=== PATIENT | male | born 1970 | race Caucasian/White ===

== ENCOUNTER 2020-06-24 11:28 | Outpatient (REF) | payer SELFPAY | END 2020-06-24 11:29 | disposition home or self-care (01) | LOC: HO.HAP 11:28 | DX: Z46.1 Encounter for fitting and adjustment of hearing aid (principal) | CPT/HCPCS: V5267 ==

== ENCOUNTER 2020-06-24 11:30 | Outpatient (REF) | payer OTHER, SELFPAY | END 2020-06-24 11:31 | disposition home or self-care (01) | LOC: HO.HAP 11:30 | DX: Z46.1 Encounter for fitting and adjustment of hearing aid (principal) | CPT/HCPCS: V5266 ==

== ENCOUNTER 2020-11-25 18:31 | Emergency (ER) | payer OTHER, SELFPAY ==
--- NOTE | ~2020-11-25 | CT_ITS ---
EXAMINATION: CT ABDOMEN AND PELVIS WITH CONTRAST CLINICAL INFORMATION: Abdominal pain. COMPARISON: Most recent CT abdomen/pelvis dated 04/27/2018. TECHNIQUE: Multidetector volumetric images were obtained from the superior aspect of the liver through the pubic symphysis following administration 85 mL of Omnipaque 350 intravenous contrast. Sagittal and coronal reformatted images were obtained on the technologist's workstation. Oral Contrast: No. This CT examination was performed using dose optimization techniques as appropriate, variously including the following: *Automated exposure control. *Adjustment of mA and/or kV according to patient size (this includes techniques or standardized protocols for targeted exams where dose is matched to indication/reason for exam; i.e. extremities or head). *Use of iterative reconstruction technique. DLP: 536 mGy-cm FINDINGS: LUNG BASES: Mild bibasilar dependent atelectasis. LIVER, GALLBLADDER, AND BILIARY TREE: The liver is normal in size, shape, and attenuation. No focal hepatic lesion or biliary ductal dilatation is present. The gallbladder is unremarkable with no evidence of radiopaque gallstones, gallbladder wall thickening, or obvious pericholecystic inflammatory changes. PANCREAS: Unremarkable. SPLEEN: Unremarkable. ADRENAL GLANDS: Unremarkable. KIDNEYS AND URETERS: The kidneys are normal in size, shape, and attenuation. No hydronephrosis, hydroureter, or calculi seen. Stable left upper pole probable renal cysts, unchanged. No enhancing renal parenchymal lesion. No perinephric stranding. BLADDER: Unremarkable. GASTROINTESTINAL TRACT: No bowel wall thickening or associated inflammatory change. No small or large bowel obstruction. Unremarkable appendix. PERITONEAL CAVITY: No intra-abdominal free air or free fluid. No intra-abdominal mass or organized fluid collection/abscess formation. ABDOMINAL WALL: No significant hernia is appreciated. LYMPH NODES: Normal. VASCULAR: Unremarkable. PELVIC VISCERA: The prostate and seminal vesicles are unremarkable. OSSEOUS STRUCTURES: Unremarkable. CT/CT abdomen pelvis w con IMPRESSION: 1. No acute intra-abdominal or intrapelvic findings to explain the patient's pain. 2. Chronic findings are unchanged.
[2020-11-25 20:02] VITALS: BP 125/73; PULSE 69; RESP 18; TEMP 37; O2SAT 98; BMI 29.9
--- NOTE | 2020-11-25 21:14 | ED_ITS ---
HPI - Abdominal Pain General Chief Complaint: Abdominal Pain Stated Complaint: Diarrhea Time Seen by Provider: 11/25/20 23:54 Source: patient Mode of arrival: ambulatory Limitations: physical limitation (Hard of hearing) History of Present Illness HPI narrative: 50-year-old male presents with 4 days of abdominal pain and diarrhea. States that he did eat some chili, hamburger, and could possibly have some food poisoning. He does report a history of H pylori in the past. He does not report any fevers or chills, but states that the abdominal pain is severe enough for him to present to the emergency department for evaluation he is hard of hearing, able to make his needs known, and reads lips. MD elicited complaint: abdominal pain Pertinent past history: other (Helicobacter pylori) Onset (ago): day(s) (4) Pain Consistency: constant Location: diffuse Severity: moderate Quality: cramping and aching Exacerbating factors: eating and movement Relieving factors: nothing Context: possible food poisoning Associated symptoms: nausea and diarrhea Related Data Home Medications Medication Instructions Recorded Confirmed clonazepam 0.5 mg tablet 0.5 mg PO BID 06/02/20 06/02/20 Previous Rx's Medication Instructions Recorded omeprazole 20 mg capsule,delayed 20 mg PO BID 30 Days #60 cap 07/28/20 release Allergies Allergy/AdvReac Type Severity Reaction Status Date / Time No Known Allergies Allergy Verified 11/25/20 20:02 [No Known Allergies*] Review of Systems Review of Systems Constitutional: No Weight loss, No Fever, No Chills, No Night Sweats, No Fatigue, No Malaise ENT/Mouth: Chronic Hearing loss, No Ear Pain, No Nasal Congestion, No Sinus Pain, No Hoarseness, No sore throat, No Rhinorrhea, No Swallowing Difficulty Eyes: No Eye Pain, No Swelling, No Redness, No Foreign Body, No Discharge, No Vision Changes Cardiovascular: No Chest Pain, No SOB, No Dyspnea on Exertion, No Orthopnea, No Edema, No Palpitations Respiratory: No Cough, No Sputum, No Wheezing, No Smoke Exposure, No Dyspnea Gastrointestinal: Positive Nausea, no Vomiting, positive Diarrhea, positive abdominal Pain, No Hematochezia, No Melena Genitourinary: no irregular bleeding, No Dysuria, No Urinary Frequency, No Hematuria, No Urinary Incontinence, No Urgency, No Flank Pain, No Urinary Flow Changes, No Hesitancy Musculoskeletal: No joint pain, No Myalgias, No Joint Swelling Skin: No Skin Lesions, No rash Neuro: No Weakness, No Numbness, No Paresthesias, No Loss of Consciousness, No Dizziness, No Headache Psych: No Anxiety/Panic, No Depression, No SI/HI/AH/VH, No Social Issues Heme/Lymph: No Bruising, No Bleeding,No Lymphadenopathy Endocrine: No Polyuria, No Polydipsia, No Temperature Intolerance Yes all other systems are reviewed and are negative Physical Exam Vital Signs: Vital Signs: Last Vital Signs Temp 98.6 F 11/25/20 20:02 Pulse 73 11/25/20 21:50 Resp 16 11/25/20 21:50 BP 137/87 11/25/20 21:50 Pulse Ox 98 11/25/20 21:50 Body Mass Index 29.9 Appearance: Alert. Oriented X3. No acute distress. Eyes: Pupils equal, round and reactive to light. Sclera nonicteric. ENT: Pharynx normal. Moist mucous membranes. Neck: Normal inspection. Neck supple. CVS: Normal heart rate and rhythm. Pulses normal. Respiratory: No respiratory distress. Breath sounds normal. Abdomen: Soft and diffusely tender. Normoactive bowel sounds. No rigidity or rebound tenderness noted. Skin: Skin warm and dry. Normal skin color. Normal skin turgor. Extremities: No lower extremity edema. Moves all extremities against resistance. Gait well balanced well coordinated. Neuro: No motor deficit. No sensory deficit. Cranial nerves 2-12 intact. Course Course Course Narrative: 50-year-old male presents with diffuse abdominal pain, no prior history of abdominal surgeries. Does report diarrhea and history of H pylori, abdominal exam positive for Machado's, negative for rebound tenderness. No distention or rigidity noted. Will order CT scan of abdomen and pelvis, and lab values. Labs and diagnostics are negative for acute findings requiring emergent intervention. Could possibly be gastroenteritis. I will refer to Gastroenterology for further evaluation. Patient verbalized understanding of and agrees plan of care discharge home. MDM - Abdominal Pain Differential Diagnosis Differential diagnosis: Likely abdominal pain, acute appendicitis, div erticulitis, gastroenteritis, gastritis and pancreatitis Medical Records Attestation: I reviewed the patient's medical records. Lab Data Attestation: I reviewed the patient's lab results. Result diagrams: 11/25/20 21:36 11/25/20 21:36 Labs: Lab Results 11/25/20 11/25/20 11/25/20 Range/Units 21:24 21:36 21:36 WBC 5.9 (4.8-10.8) X10*3/uL RBC 5.44 (4.60-5.80) X10*6/uL Hgb 16.6 (14.0-18.0) g/dl Hct 47.6 (42-52) % MCV 87.5 (80-98) fL MCH 30.5 (27.0-33.0) pg MCHC 34.9 (31.0-36.0) g/dl RDW 12.0 (11.0-16.0) % Plt Count 236 (160-400) X10*3/uL MPV 9.2 L (9.4-12.4) fL Immature Gran % (Auto) 0.3 (0.0-0.4) % Neut % (Auto) 54.9 (45-73) % Lymph % (Auto) 32.3 (20-40) % [place] % (Auto) 9.3 (2-11) % Eos % (Auto) 2.4 (0-4) % Baso % (Auto) 0.8 (0-2) % Lymph # (Auto) 1.9 (1.2-4.9) X10*3/uL [place] # (Auto) 0.6 (0.1-1.2) X10*3/uL Eos # (Auto) 0.1 (0.0-0.4) X10*3/uL Baso # (Auto) 0.1 (0.0-0.2) X10*3/uL Abs Immat Gran (auto) 0.02 (0.00-0.03) X10*3/uL Absolute Neuts (auto) 3.3 (2.0-8.3) X10*3/uL Absolute Nucleated RBC 0.000 (0.0-0.012) X10*3/uL Nucleated RBC % (auto) 0.0 (0.0-0.2) /100WBC Sodium 140 (135-145) mmol/L Potassium 3.8 (3.3-5.1) mmol/L Chloride 105 (96-108) mmol/L Carbon Dioxide 26 (22-29) mmol/L Anion Gap 13 (12-20) BUN 10 (9-16) mg/dL Creatinine 1.12 (0.5-1.4) mg/dL Estim Creat Clear Calc 75.9 Estimated GFR > 60 Random Glucose 102 (60-115) mg/dL Calcium 9.6 (8.4-10.2) mg/dL Total Bilirubin 0.6 (0.0-1.0) mg/dL AST 20 (5-37) U/L ALT 24 (0-40) U/L Alkaline Phosphatase 86 (39-117) U/L Total Protein 7.4 (6.5-8.0) g/dL Albumin 4.4 (3.5-5.0) g/dL Lipase 17 (8-78) U/L Urine Color YELLOW Urine Appearance CLEAR Urine pH 6.0 (5.0-8.0) Ur Specific [place] 1.010 (1.005-1.025) Urine Protein NEG (NEG-TRACE) MG/DL Urine Glucose (UA) NEG (NEG) MG/DL Urine Ketones NEG (NEG) MG/DL Urine Blood NEG (NEG) Urine Nitrite NEG (NEG) Ur Leukocyte Esterase NEG (NEG) Imaging Data CT scan - abdomen: Attestation: I personally reviewed and interpreted this imaging study as follows: Radiologist's impression: FINDINGS: LUNG BASES: Mild bibasilar dependent atelectasis.? LIVER, GALLBLADDER, AND BILIARY TREE: The liver is normal in size, shape, and attenuation. No focal hepatic lesion or biliary ductal dilatation is present. The gallbladder is unremarkable with no evidence of radiopaque gallstones, gallbladder wall thickening, or obvious pericholecystic inflammatory changes.? PANCREAS: Unremarkable.? SPLEEN: Unremarkable.? ADRENAL GLANDS: Unremarkable.? KIDNEYS AND URETERS: The kidneys are normal in size, shape, and attenuation. No hydronephrosis, hydroureter, or calculi seen. Stable left upper pole probable renal cysts, unchanged. No enhancing renal parenchymal lesion. No perinephric stranding. ? BLADDER: Unremarkable.? GASTROINTESTINAL TRACT: No bowel wall thickening or associated inflammatory change. No small or large bowel obstruction. Unremarkable appendix. PERITONEAL CAVITY: No intra-abdominal free air or free fluid. No intra-abdominal mass or organized fluid collection/abscess formation.? ABDOMINAL WALL: No significant hernia is appreciated.? LYMPH NODES: Normal. VASCULAR: Unremarkable. PELVIC VISCERA: The prostate and seminal vesicles are unremarkable.? OSSEOUS STRUCTURES: Unremarkable.? CT/CT abdomen pelvis w con IMPRESSION: 1. No acute intra-abdominal or intrapelvic findings to explain the patient's pain. ? 2. Chronic findings are unchanged.? Discharge Plan Discharge Clinical Impression: Gastroenteritis Patient Disposition: Home, Self-Care Instructions: Gastroenteritis (ED), Acute Diarrhea (ED) Additional Instructions: You were evaluated for abdominal pain and diarrhea. This could possibly be gastroenteritis. Your CT scan of the abdomen and pelvis was negative for acute findings. Please follow-up with Gastroenterology. Thank you for choosing this emergency department for evaluation. Please fo llow-up with primary care physician as needed. Return to the emergency department for any new, concerning, or worsening symptoms. Prescriptions: No Action omeprazole 20 mg capsule,delayed release(DR/EC) 20 mg PO BID 30 Days Qty: 60 RF: 3 clonazepam 0.5 mg tablet 0.5 mg PO BID RF: 0 Referrals: Maribel Henry ANP-C [Nurse Practitioner] - 2 days (Abdominal pain, diarrhea) Interventions: ED Discharge Assessment Last Done: 11/26/20 00:19 Discharge Date/Time: 11/26/20 00:20 ON LICENSE OF [facility] Past Medical History Attestation statement: The following information was validated with the patient. Source: old records reviewed Medical History (Updated 11/26/20 @ 00:03 by Roseanna Hilario NP) Anxiety GERD without esophagitis Hyperlipidemia Normal colonoscopy Overweight (BMI 25.0-29.9) Surgical History No significant past surgical history Family History Family History Maternal Grandfather Colon cancer Social History Social History Alcohol intake: current Alcohol intake frequency: holidays/special occasions only Advance Directives: No Advance Directives Information Provided: No
[2020-11-25 21:42] LABS: MANUAL DIFF FLAG NO
[2020-11-25 21:43] LABS: Appearance Urine CLEAR; Color Urine YELLOW; Glucose Urine UA NEG (NEG); Leukocyte Esterase Urine NEG (NEG); Nitrite Urine NEG (NEG); Urine Blood NEG (NEG); Urine Ketones NEG (NEG); Urine Protein NEG (NEG-TRACE)
[2020-11-25 21:43] LABS: Basophils Absolute Auto 0.1 X10*3/uL (0.0-0.2); Basophils Percent Auto 0.8 % (0-2); Eosinophils Absolute Auto 0.1 X10*3/uL (0.0-0.4); Eosinophils Percent Auto 2.4 % (0-4); Hematocrit 47.6 % (42-52); Hemoglobin 16.6 g/dl (14.0-18.0); Imm Gran Abs Auto 0.02 X10*3/uL (0.00-0.03); Imm Gran Pct Auto 0.3 % (0.0-0.4); Lymphocytes Absolute Auto 1.9 X10*3/uL (1.2-4.9); Lymphocytes Percent Auto 32.3 % (20-40); Mean Corpuscular HGB Conc 34.9 g/dl (31.0-36.0); Mean Corpuscular Hemoglobin 30.5 pg (27.0-33.0); Mean Corpuscular Volume 87.5 fL (80-98); Mean Platelet Volume 9.2 fL (9.4-12.4); Monocytes Absolute Auto 0.6 X10*3/uL (0.1-1.2); Monocytes Percent Auto 9.3 % (2-11); Neutrophils Absolute Auto 3.3 X10*3/uL (2.0-8.3); Neutrophils Percent Auto 54.9 % (45-73); Platelet Count 236 X10*3/uL (160-400); Red Blood Count 5.44 X10*6/uL (4.60-5.80); White Blood Count 5.9 X10*3/uL (4.8-10.8)
[2020-11-25] MEDS: 0.9 % Sodium Chloride 1,000 ML 999 ML IV (21:47)
[2020-11-25 21:50] VITALS: BP 137/87; PULSE 73; RESP 16; O2SAT 98
[2020-11-25 22:00] LABS: Alanine Aminotransferase 24 U/L (0-40); Albumin Level 4.4 g/dL (3.5-5.0); Alkaline Phosphatase 86 U/L (39-117); Anion Gap 13 (12-20); Aspartate Amino Transferase 20 U/L (5-37); Bilirubin Total 0.6 mg/dL (0.0-1.0); Blood Urea Nitrogen 10 mg/dL (9-16); Calcium 9.6 mg/dL (8.4-10.2); Carbon Dioxide 26 mmol/L (22-29); Chloride 105 mmol/L (96-108); Creatinine Clr Calc Pharmacy 75.9; Estimated Glomerular Filt Rate > 60; Glucose Random 102 mg/dL (60-115); Lipase 17 U/L (8-78); Potassium 3.8 mmol/L (3.3-5.1); Sodium 140 mmol/L (135-145); Total Protein 7.4 g/dL (6.5-8.0)
[2020-11-25] MEDS: iohexoL 350 MG/ML 100 ML INFUS..BTL IV (22:34)
== END 2020-11-26 00:20 | disposition home or self-care (01) ==
PROVIDERS: Nurse Practitioner Family; Emergency Provider Student in an Organized Health Care Education/Training Program; PCP Internal Medicine
DX: K52.9 Noninfective gastroenteritis and colitis, unspecified (principal); R10.9 Unspecified abdominal pain; Z79.899 Other long term (current) drug therapy
CPT/HCPCS: 36415; 74177; 80053; 81003; 83690; 85025; 96360; 99284; Q9967

== ENCOUNTER 2020-12-17 09:43 | Outpatient (REF) | payer OTHER, SELFPAY ==
[2020-12-17 11:06] LABS: MANUAL DIFF FLAG NO
[2020-12-17 11:49] LABS: Basophils Absolute Auto 0.1 X10*3/uL (0.0-0.2); Basophils Percent Auto 0.9 % (0-2); Eosinophils Absolute Auto 0.4 X10*3/uL (0.0-0.4); Eosinophils Percent Auto 4.9 % (0-4); Hematocrit 46.3 % (42-52); Imm Gran Abs Auto 0.02 X10*3/uL (0.00-0.03); Imm Gran Pct Auto 0.3 % (0.0-0.4); Lymphocytes Absolute Auto 1.8 X10*3/uL (1.2-4.9); Lymphocytes Percent Auto 23.7 % (20-40); Mean Corpuscular HGB Conc 34.6 g/dl (31.0-36.0); Mean Corpuscular Hemoglobin 30.3 pg (27.0-33.0); Mean Corpuscular Volume 87.7 fL (80-98); Mean Platelet Volume 9.5 fL (9.4-12.4); Monocytes Absolute Auto 0.6 X10*3/uL (0.1-1.2); Monocytes Percent Auto 7.6 % (2-11); Neutrophils Absolute Auto 4.7 X10*3/uL (2.0-8.3); Neutrophils Percent Auto 62.6 % (45-73); Platelet Count 297 X10*3/uL (160-400); Red Blood Count 5.28 X10*6/uL (4.60-5.80); Red Cell Distribution Width 11.9 % (11.0-16.0); White Blood Count 7.5 X10*3/uL (4.8-10.8)
[2020-12-17 11:51] LABS: Appearance Urine CLEAR; Color Urine YELLOW; Glucose Urine UA NEG (NEG); Leukocyte Esterase Urine NEG (NEG); Nitrite Urine NEG (NEG); Specific Gravity - Urine 1.025 (1.005-1.025); Urine Blood NEG (NEG); Urine Ketones NEG (NEG); Urine Protein NEG (NEG-TRACE)
[2020-12-17 12:10] LABS: Alanine Aminotransferase 14 U/L (0-40); Albumin Level 4.4 g/dL (3.5-5.0); Alkaline Phosphatase 75 U/L (39-117); Anion Gap 11 (12-20); Aspartate Amino Transferase 13 U/L (5-37); Bilirubin Total 0.7 mg/dL (0.0-1.0); Blood Urea Nitrogen 10 mg/dL (9-16); C Reactive Protein 0.23 mg/dL (< or = 0.50); Calcium 9.8 mg/dL (8.4-10.2); Carbon Dioxide 28 mmol/L (22-29); Chloride 107 mmol/L (96-108); Cholesterol 185 mg/dL; Estimated Glomerular Filt Rate > 60; Glucose Fasting 89 mg/dL (60-99); HDL Cholesterol 44 mg/dL; LDL Cholesterol Calculated 124 mg/dl; Potassium 4.3 mmol/L (3.3-5.1); Sodium 142 mmol/L (135-145); Total Protein 7.3 g/dL (6.5-8.0); Triglycerides 89 mg/dL
[2020-12-17 12:24] LABS: TSH reflex Free T4 6.48 uIU/mL (0.32-4.0)
[2020-12-17 13:06] LABS: Free T4 (Free Thyroxine) 0.98 ng/dL (0.71-1.85)
[2020-12-22 12:21] LABS: Transglutaminase Ab IgG <1.0 U/mL; Transglutaminase IgA <1.0 U/mL
== END 2020-12-17 09:44 | disposition home or self-care (01) ==
LOC: HO.LAB 09:43
PROVIDERS: PCP Internal Medicine; Referring Provider Internal Medicine; Visit Provider Nurse Practitioner
DX: R19.7 Diarrhea, unspecified (principal); K21.9 Gastro-esophageal reflux disease without esophagitis; R10.13 Epigastric pain; E78.5 Hyperlipidemia, unspecified; E66.3 Overweight
CPT/HCPCS: 36415; 80053; 80061; 81003; 83516; 84439; 84443; 85025; 86140; 99212

== ENCOUNTER 2020-12-19 09:23 | Outpatient (REF) | payer OTHER, SELFPAY | END 2020-12-19 09:24 | disposition home or self-care (01) | LOC: HO.LNP 09:23 | PROVIDERS: Visit Provider Nurse Practitioner | DX: R19.7 Diarrhea, unspecified (principal); R10.13 Epigastric pain | CPT/HCPCS: 87045; 87046; 87338 ==

== ENCOUNTER → 2021-01-01 11:25 | Outpatient (BNVA) | payer OTHER, SELFPAY | PROVIDERS: PCP Internal Medicine; Referring Provider Internal Medicine; Visit Provider Nurse Practitioner | DX: R19.7 Diarrhea, unspecified (principal); K21.9 Gastro-esophageal reflux disease without esophagitis; R10.13 Epigastric pain; A04.8 Other specified bacterial intestinal infections; E78.5 Hyperlipidemia, unspecified; E66.9 Obesity, unspecified; Z68.27 Body mass index [BMI] 27.0-27.9, adult | CPT/HCPCS: 99212 ==

== ENCOUNTER 2021-03-01 10:30 | Day surgery (SDC) | payer OTHER, SELFPAY ==
[2021-02-23 14:37] VITALS: BMI 27.9
--- NOTE | 2021-02-26 09:16 | P.CONAN_ITS ---
Documented by User: Starr Salas NP 02/26/21 09:17 HPI - Anesthesia Eval Consult details Narrative: 51yo M for Colonoscopy PMFSH Active Problems Active Problems: All Active Problems (Updated 01/01/21 @ 15:47 by HAYLEY Shafer) Hearing impaired (Acute) Depression (Acute) Gastroenteritis (Acute) Diarrhea (Acute) Dyspepsia (Acute) H. pylori infection (Acute) Overweight (BMI 25.0-29.9) (Acute) Anxiety (Acute) GERD without esophagitis (Acute) Hyperlipidemia (Acute) Past Medical History Medical History (Updated 01/01/21 @ 15:47 by HAYLEY Shafer) Anxiety GERD without esophagitis H. pylori infection Hyperlipidemia Normal colonoscopy Overweight (BMI 25.0-29.9) Family History Family History Maternal Grandfather Colon cancer Surgical History Surgical History (Updated 03/01/21 @ 11:36 by Ann Marie Blankenship RN) H/O colonoscopy Hx of wisdom tooth extraction Social History Social History Housing: House Alcohol intake: current Alcohol intake frequency: holidays/special occasions only Patient Tobacco Use Status: Never used Tobacco Second Hand Smoke Exposure: Yes Advance Directives Information Provided: Yes (informational brochure mailed) Advance Directives on File: No service: No Current occupational status: unemployed Meds Allergies Allergy/AdvReac Type Severity Reaction Status Date / Time No Known Allergies Allergy Verified 03/01/21 11:36 [No Known Allergies*] Exam Exam Date and Time: February 26, 2021 0916 Height,Weight and Vital Signs: Height 5 ft 5 in Weight 76.204 kg Pertinent Lab Results Pertinent Lab Results: Laboratory Tests 12/17/20 12/17/20 11:00 11:00 WBC 7.5 Hgb 16.0 Hct 46.3 Plt Count 297 D Sodium 142 Potassium 4.3 Chloride 107 Carbon Dioxide 28 BUN 10 Creatinine 1.14 Assessment and Plan Assessment Anesthesia Assessment: Chart Reviewed Documented by User: Lexy Mooney MD 03/01/21 12:05 [facility] Past Medical History Medical History (Updated 01/01/21 @ 15:47 by HAYLEY Shafer) Anxiety GERD without esophagitis H. pylori infection Hyperlipidemia Normal colonoscopy Overweight (BMI 25.0-29.9) Family History Family History Maternal Grandfather Colon cancer Family history of problems with anesthesia: No Surgical History Surgical History (Updated 03/01/21 @ 11:36 by Ann Marie Blankenship RN) H/O colonoscopy Hx of wisdom tooth extraction History of Problems with Anesthesia: No Social History Social History Housing: House Alcohol intake: current Alcohol intake frequency: holidays/special occasions only Patient Tobacco Use Status: Never used Tobacco Second Hand Smoke Exposure: Yes Advance Directives Information Provided: Yes (informational brochure mailed) Advance Directives on File: No service: No Current occupational status: unemployed Meds Allergies Allergy/AdvReac Type Severity Reaction Status Date / Time No Known Allergies Allergy Verified 03/01/21 11:36 [No Known Allergies*] Exam Airway Mallampati Class: II (Top front 2 implants anither off tomright top) TM Dist: >3cm Neck ROM: Full Heart: rrr Lungs: cta Assessment and Plan Assessment Anesthesia Assessment: Anesthesia Plan Discussed and Chart Reviewed Final Anesthetic Review Family History of Problems with Anesthesia: No History of Problems with Anesthesia: No NPO: Yes ASA Class: II Final Preanesthetic Review: No Changes in Pt Med Stat, Meds/Allgs Chart Reviewed and Consent Obtained/Reviewed Patient Risk: Intermediate Procedure Risk: Intermediate Anesthetic Plan Anesthetic Plan: MAC: Disposition: Standard PACU
--- NOTE | 2021-03-01 10:47 | MHC.SHP ---
Pre-Procedural Eval Section A Date of Service: 03/01/21 Section B Chief Complaint: diarrhea,unspecified Details of Present Illness: grand dad with colon cancer, cousin with polyps Relevant Family History (Specify if Yes): Yes Relevant Social History: None Present Medications: see Short Stay Collaborative assessment Medical History: Significant History (Anxiety GERD without esophagitis H. pylori infection Hyperlipidemia Normal colonoscopy Overweight (BMI 25.0-29.9)) History of Previous Operations: Relevant previous surgery/procedure and date(s) (colonoscopy) Allergies: Allergies Allergy/AdvReac Type Severity Reaction Status Date / Time No Known Allergies Allergy Verified 01/01/21 11:34 [No Known Allergies*] Review of Systems Sugical H&P ROS: Negative: Constitution, Cardiovascular, Respiratory, Neurological, Psychiatric, Hem-Onc, Allergic/Immunologic, Gastrointestinal, Genitourinary, Musculoskeletal, Integumentary, Endocrine and Eyes/Ears/Nose/Throat Exam Surgical H&P Exam: Normal: HEENT, Normal: Heart, Normal: Lungs, Normal: Extremities, Normal: Abdomen, Normal: Skin and Normal: Neurological Plan Diagnosis/Plan: Unchanged I have reviewed the history and physical and performed a pertinent physical examination on my patient. No changes have occurred unless specified.
[2021-03-01 11:51] VITALS: BP 110/75; PULSE 77; RESP 16; TEMP 37.1; O2SAT 97
[2021-03-01] MEDS: Lactated Ringers 1,000 ML 100 ML IVCONT (12:00)
--- NOTE | 2021-03-01 12:01 | P.BOP_ITS ---
Brief Operative Note Date of Service: 03/01/21 Pre-op diagnosis: altered bowel habit Post-op diagnosis: same Procedure: see op note Surgeon: Carmenza Hobbs MD Anesthesia: MAC Was an Biomedical Field Service Engineer used for this Procedure?: No Estimated blood loss (mL): 0 Condition: stable Disposition: PACU
--- NOTE | 2021-03-01 12:01 | P.OP_ITS ---
Operative Note Operative Note Date of Service: 03/01/21 Narrative: Operative Information Procedure Description: Colonoscopy COLONOSCOPY Instrument: Olympus variable stiffness pediatric scope 190L Colonoscopy Monitoring: Vital signs and clinical assessment, continuous EKG monitoring, Pulse oximetry, Carbon Dioxide monitoring and blood pressure monitoring were done throughout the procedure. Colon withdrawal time was 11 minutes. Procedure: The patient was placed in the left lateral decubitis position and pre-procedure medications were administered. After a digital rectal examination of the ano-rectum, the video colonoscope was inserted into the rectum and advanced through the colon to the cecum/TI. The colonoscope was slowly withdrawn in a retrograde panoramic fashion and the colon mucosa was carefully examined including a retroflexed view of the rectum. Findings and interventions are described below. Procedure Difficulty: easy Findings: Terminal Ileum-normal, bx taken patchy nodularity to the colonic mucosa, random bx were taken Cecum:normal Ascending Colon: normal Transverse Colon -normal Descending Colon:normal Sigmoid Colon: normal Rectum: Retroflexion with small internal hemorrhoids, grade I Anorectum - normal Colon preparation: Murchison Bowel Preparation Scale Right colon; 2 Transverse colon: 2 Left colon; 2 (0 = Unprepared colon segment with mucosa not seen due to solid stool that cannot be cleared. 1 = Portion of mucosa of the colon segment seen, but other areas of the colon segment not well seen due to staining, residual stool and/or opaque liquid. 2 = Minor amount of residual staining, small fragments of stool and/or opaque liquid, but mucosa of colon segment seen well. 3 = Entire mucosa of colon segment seen well with no residual staining, small fragments of stool or opaque liquid) Impression and Post Procedure Diagnosis: internal hemorrhoids Plan: High fiber diet leaflet Avoid straining at stool, epsom salts and sitz bath, anusol supps or cream Repeat Colonoscopy in 10 years or earlier if clinically indicated await path results Above findings were reviewed with the patient and relevant handouts were provided if indicated.
[2021-03-01 12:43] VITALS: BP 80/42; PULSE 70; RESP 16; TEMP 36.4; O2SAT 97
[2021-03-01 13:10] VITALS: BP 83/47; PULSE 66; RESP 18; O2SAT 96
== END 2021-03-01 14:36 | disposition home or self-care (01) ==
PROVIDERS: PCP Internal Medicine; Visit Provider Internal Medicine Gastroenterology
PROC: 0DJD8ZZ Inspection of Lower Intestinal Tract, Via Natural or Artificial Opening Endoscopic (ICD-10-PCS; CPT 45378; principal; 2021-03-01 11:50)
DX: R19.7 Diarrhea, unspecified (principal); K63.89 Other specified diseases of intestine; K64.0 First degree hemorrhoids; K21.9 Gastro-esophageal reflux disease without esophagitis; F41.1 Generalized anxiety disorder; E78.5 Hyperlipidemia, unspecified; R10.13 Epigastric pain; A04.8 Other specified bacterial intestinal infections; Z79.899 Other long term (current) drug therapy; E66.3 Overweight; Z68.27 Body mass index [BMI] 27.0-27.9, adult
CPT/HCPCS: 45380; 88305

== ENCOUNTER → 2021-04-01 10:50 | Outpatient (BNVA) | payer OTHER, SELFPAY | PROVIDERS: PCP Internal Medicine; Referring Provider Internal Medicine; Visit Provider Nurse Practitioner | DX: K21.9 Gastro-esophageal reflux disease without esophagitis (principal); K58.2 Mixed irritable bowel syndrome; R10.13 Epigastric pain; Z83.71 Family history of colonic polyps | CPT/HCPCS: 99212 ==

== ENCOUNTER 2021-04-12 13:41 | Outpatient (REF) | payer OTHER, SELFPAY | END 2021-04-12 13:42 | disposition home or self-care (01) | LOC: HO.HAP 13:41 | PROVIDERS: Visit Provider Internal Medicine | DX: Z46.1 Encounter for fitting and adjustment of hearing aid (principal); H90.3 Sensorineural hearing loss, bilateral | CPT/HCPCS: V5266 ==

== ENCOUNTER → 2021-04-27 07:47 | Outpatient (REF) | payer OTHER, SELFPAY ==
--- NOTE | ~2021-04-27 | NM_ITS ---
EXAMINATION: NM BILIARY TRACT WITH ORAL FATTY MEAL CLINICAL INFORMATION: Epigastric pain. COMPARISON: No previous biliary scan is available for comparison. The diagnostic CT scan of the abdomen and pelvis, dated 11/25/2020, is available for comparison. TECHNIQUE: Serial gamma scintillation camera images were obtained over the abdomen for a total observation period of 124 minutes following the intravenous administration of 5 mCi Tc-99m Mebrofenin. FINDINGS: There is good concentration of activity in the liver by 5 minutes post injection. Biliary activity is visualized by 10 minutes. The gallbladder is well visualized by 35 minutes. Small bowel is well visualized by 15 minutes. At 60 minutes post Mebrofenin injection, 8 ounces of Ensure-plus Brand was administered orally and an additional 60 minutes of images were obtained. There is good emptying of the gallbladder following ingestion of the fatty meal. At the end of the study there is good clearance of activity from the liver and visualization of diffuse small bowel activity. The calculated gallbladder ejection fraction is 78% (normal gallbladder ejection fraction using Ensure supplement orally is greater than 33%). NM/NM hepatobiliary w pharm IMPRESSION: Visualization of the gallbladder is evidence of a patent cystic duct and strong evidence against the diagnosis of acute cholecystitis. The common bile duct is patent. Gallbladder emptying and ejection fraction are normal. Liver function appears normal.
== END ==
LOC: HO.NUCMED 07:47
PROVIDERS: PCP Internal Medicine; Visit Provider Nurse Practitioner
DX: R10.13 Epigastric pain (principal)
CPT/HCPCS: 78227; A9537

== ENCOUNTER → 2021-05-03 11:29 | Outpatient (BNVA) | payer OTHER, SELFPAY | PROVIDERS: PCP Internal Medicine; Referring Provider Internal Medicine; Visit Provider Nurse Practitioner | DX: K58.2 Mixed irritable bowel syndrome (principal); K21.9 Gastro-esophageal reflux disease without esophagitis; R10.13 Epigastric pain | CPT/HCPCS: 99212 ==

== ENCOUNTER 2021-06-08 10:26 | Outpatient (REF) | payer OTHER, SELFPAY ==
--- NOTE | 2021-06-08 13:29 | MHC.AU.AHA ---
Adult Audiological Evaluation Date of Visit: 06/08/21 Cooperative Education Coordinator Used: Not Applicable Reason for Appointment: Audiologic re-evaluation prior to obtaining new hearing aids as required by insurance. Cruzito has a history of progressive bilateral sensorineural hearing loss. Previous Hearing Test Results: 2015 [facility] Profound sensorineural hearing loss 250-8000 Hz bilaterally. Medical History: Medical History: Hyperlipidemia Medication List: Not available for review Hearing Instrument History- Right Ear: Java Application Engineer: Phonak Model: Hemalatha Q 50-UP Serial Number: [id number] Battery Size: 675 Repair Warranty: 2017 Dispensed By: [facility] Date of Fittin01/15/2015 Hearing Instrument History- Left Ear: Java Application Engineer: Phonak Model: Hemalatha Q 50-UP Serial Number: [id number] Battery Size: 675 Warranty: 2017 Dispensed By: [facility] Date of Fittin01/15/2015 Otoscopy: Right Ear: Unremarkable Left Ear: Unremarkable Tympanometry: Not performed at today's visit as all previous test results have indicated normal middle ear function bilaterally. Hearing Evaluation: Transducer(s) Used: Insert Earphones Bone Conduction Method: Conventional Audiometry Stimuli Used: Pure Tones Right Ear: Description of Hearing: Profound sensorineural hearing loss 250-8000 Hz Left Ear: Description of Hearing: Profound sensorineural hearing loss 250-8000 Hz Speech Awareness Threshold (SAT): Method Used: Live Monitored Voice Right Ear: 90 dB HL Left Ear: 95 dB HL Word Discrimination: Right Ear: Could Not Test Left Ear: Could Not Test Comparison: Compared to most recent evaluation: Thresholds for 250-1000 Hz have decreased for both ears, left ear greater than right. Recommendations: Trial with new amplification is recommended. Medical clearance from a physician is required before fitting. Hearing Aid Fitting will be scheduled when all materials arrive. Audiological re-evaluation in one year. Diagnosis: Primary Diagnosis: H90.3 Bilateral Sensorineural Hearing Loss Services Performed: [employer] (CPT 08474) Signature: Provider: Jessica Zuniga, [facility]
--- NOTE | 2021-06-08 13:34 | MHC.AU.MED ---
Medical Clearance for Hearing Instrumentation Date: 06/08/21 Patient Name: Cruzito Gonzalez JR Date of : 1970 Primary Care Provider: Referring Provider: Fernando Garza MD We have seen your patient on 06/08/21 and have determined that they are a candidate for amplification (See accompanying report). Specifically, they would benefit from: Hearing aid use in both ears There is a statute that addresses Medical Evaluation Requirements prior to fitting a patient with a hearing aid. According to [place] statute 265 CMR:6.03(1), (a) General. Except as provided in 265 CMR 6.03(1)(b), a [facility] nurse shall not sell a hearing aid unless the prospective user has presented to the [facility] nurse a written statement signed by a licensed physician that states that the patient's hearing loss has been medically evaluated and the patient may be considered a candidate for a hearing aid. The medical evaluation must have taken place within the preceding six months. Please note: Due to the [place] Statute referenced above, we cannot accept a signature other than that of a licensed physician. DOCK MANAGER and PA signatures cannot be accepted. I am in agreement with the above recommendation. There is no medical contraindication for hearing instrumentation. Physician Signature Date Physician Name (Printed)
--- NOTE | 2021-06-08 13:46 | MHC.AU.HAS ---
Hearing Aid Evaluation Date of Visit: 06/08/21 Historical Information: Description of Hearing: Profound sensorineural hearing loss bilaterally with no speech discrimination ability without visual cues. Current personal amplification information, if applicable: 2014 binaural Phonak Hemalatha Q 50-UP BTE Hearing Aid Prescription: Based on the individual?s shared listening needs, communication environments, dexterity, desire for connectivity, and personal preferences, the following prescription for amplification has been made: Right ear: Golf Instructor: Phonak Model: Hemalatha P 70-UP Battery Size: 675 Color: Beige Tubing: Tube Lock Type of Mold: Microsonic Canal Shell Left ear:Left ear prescription to be same as Right Hearing Aid above: Golf Instructor: Phonak Model: Hemalatha P 70-UP Battery Size: 675 Color: Beige Tubing: Tube Lock Type of Mold: Microsonic Canal Shell Plan of Care: Patient wishes to purchase hearing aids as prescribed Action Taken/Action Needed: Earmold Impressions Taken, Medical Clearance to be requested from PCP/ENT, Hearing Instrument Fitting to be scheduled when materials arrive Primary Diagnosis: H90.3 Bilateral Sensorineural Hearing Loss Signature: Provider: Jessica Zuniga, CCC-A
== END 2021-06-08 10:27 | disposition home or self-care (01) ==
LOC: HO.SH 10:26
PROVIDERS: Visit Provider Internal Medicine
DX: Z01.118 Encounter for examination of ears and hearing with other abnormal findings (principal); Z46.1 Encounter for fitting and adjustment of hearing aid; H90.3 Sensorineural hearing loss, bilateral
CPT/HCPCS: 92553; 92591; V5275

== ENCOUNTER 2021-06-20 15:19 | Emergency (ER) | payer OTHER, SELFPAY ==
[2021-06-20 15:50] VITALS: BP 117/72; PULSE 75; RESP 18; O2SAT 99; BMI 24.3
--- NOTE | 2021-06-20 16:53 | ED.SKABFB ---
HPI - Skin/Abscess/Foreign Bdy General Chief complaint: Skin/Abscess/Foreign Body Stated complaint: rash all over body Time Seen by Provider: 06/20/21 16:28 Source: patient Mode of arrival: ambulatory Limitations: no limitations History of Present Illness HPI narrative: 51-year-old male here with reports of itching rash for the last 4 days over his arms and legs and genital region. Patient tells me this occurred after he was camping in the [facility] and was in contact with either poison day or poison oak. Patient denies any burning or pain to the rash or fevers or chills. Patient also reports he removed a tick from his lower abdomen yesterday. He believes he may have gotten the tick on him from camping 4 days ago. No fevers, chills, headache, neck pain/stiffness. Related Data Previous Rx's Medication Instructions Recorded sennosides 8.6 mg capsule (senna) 17.2 mg PO BEDTIME 30 Days #60 cap 04/01/21 dicyclomine 20 mg tablet 20 mg PO QID #360 tab 04/20/21 famotidine 40 mg tablet (Pepcid) 40 mg PO BEDTIME #30 tab 05/07/21 omeprazole 20 mg capsule,delayed 20 mg PO DAILY 30 Days #30 cap 05/07/21 release diphenhydramine HCl 25 mg capsule 25 mg PO Q6H PRN #20 cap 06/20/21 (Benadryl) hydrocortisone 2.5 % topical cream 1 appl TOPICAL QID PRN #30 g 06/20/21 prednisone 20 mg tablet 60 mg PO DAILY #15 tab 06/20/21 Allergies Allergy/AdvReac Type Severity Reaction Status Date / Time No Known Allergies Allergy Verified 06/20/21 15:55 [No Known Allergies*] Review of Systems Review of Systems: Yes all other systems are reviewed and are negative Constitutional: Constitutional: Reports no additional constitutional complaints, Denies body ache(s), Denies chills, Denies fever(s), Denies headache(s) and Denies weakness Eyes: Eyes: Reports no additional eye complaints and Denies change in vision ENT: Reports system reviewed and no additional complaints, except as documented, Denies dizziness, Denies headache(s), Denies nasal congestion, Denies nasal discharge and Denies neck pain Cardiovascular: Cardiovascular: Reports no additional cardiovascular complaints, Denies chest pain, Denies leg edema and Denies dyspnea Respiratory: Respiratory: Reports no additional respiratory complaints, Denies cough and Denies dyspnea Gastrointestinal: Gastrointestinal: Reports no additional gastrointestinal complaints, Denies abdominal pain, Denies diarrhea, Denies nausea and Denies vomiting Genitourinary: Genitourinary: Denies urinary incontinence Musculoskeletal: Musculoskeletal: Reports no additional musculoskeletal complaints, Denies back pain, Denies arthralgias, Denies joint swelling, Denies neck pain, Denies numbness and Denies tingling Integumentary/Breasts: Skin/Breast: Reports system reviewed and no additional complaints, except as docu and Reports rash Neurologic: Reports system reviewed and no additional complaints, except as documented, Denies Abnormal speech present, Denies dizziness, Denies headache(s), Denies numbness, Denies tingling and Denies weakness PMFSH Past Medical History Attestation statement: The following information was validated with the patient. Source: old records reviewed and nursing notes reviewed Medical History Anxiety GERD without esophagitis H. pylori infection Hyperlipidemia Normal colonoscopy Overweight (BMI 25.0-29.9) Surgical History H/O colonoscopy Hx of wisdom tooth extraction Family History Family History Maternal Grandfather Colon cancer Social History Social History Housing: House Alcohol intake: current Alcohol intake frequency: holidays/special occasions only Patient Tobacco Use Status: Never used Tobacco Second Hand Smoke Exposure: Yes Advance Directives: No Advance Directives Information Provided: Yes service: No Current occupational status: unemployed Physical Exam Vital Signs: Vital Signs: Last Vital Signs Pulse 75 06/20/21 15:50 Resp 18 06/20/21 15:50 BP 117/72 06/20/21 15:50 Pulse Ox 99 06/20/21 15:50 BMI result Body Mass Index 24.3 Const: General: cooperative, healthy appearing, comfortable and no acute distress Orientation/consciousness: patient oriented x3 Limitations: no limitations HEENT: Head: Yes normal to inspection Ears: hearing grossly normal bilaterally General nose exam: Normal external nose present Face and sinus: Yes normal facial exam Mouth: Normal oral and palatal mucosa present Throat: Yes posterior oropharynx normal Eyes: General: appearance normal, both eyes and all related structures Pupils: Equal, round and reactive pupils present Neck: Neck: Yes normal visual inspection Chest: Chest palpation & inspection: normal inspection of the chest Resp: Effort & Inspection: normal respiratory effort Auscultation: clear to auscultation bilaterally Cardio: Rate: regular rate Rhythm: regular rhythm Peripheral pulses: Peripheral pulses 2+ throughout GI: Inspection: Yes normal to inspection Palpation (GI): Soft to palpation and nontender Auscultation: normal bowel sounds Back/Spine/Pelvis: Thoracic/Lumbar Spine: thoracic and lumbar spine normal to inspection Skin: Other: Rash to arms/legs/genital region which is linear in nature with vesicles To the lower right abdomen there is small area of erythema with a central bite doyle. NO bullseye appearance. Neuro: General: patient oriented x3, no focal motor deficits and normal sensation to monofilament Cranial nerves: Yes Equal, round and reactive pupils present Cognition (Neuro): normal cognition Speech: No Abnormal speech present Gait exam (Neuro): Normal gait present Motor exam (neuro): 5/5 motor strength present throughout Extrem: General: Yes normal to inspection Course Course Course Narrative: 51 yo male here with itching rash c/w with poison day/oak. Will treat with prednisone course, topical corticosteroids and Benadryl p.r.n. patient also has a tick bite to the right lower abdomen that does not appear consistent with erythema migrans. He believes to take may have been in place for several days and he tells me it was engorged when he removed. He was given 1 time dose of doxycycline 200 mg. We reviewed signs and symptoms of tick-borne illnesses and when to return to the emergency department. Comfortable discharge home. MDM - Skin/Abscess/Foreign Bdy Medical Records Attestation: I reviewed the patient's medical records. Lab Data Attestation: I reviewed the patient's lab results. Discharge Plan Discharge Clinical Impression: Poison ady, Tick bite Patient Disposition: Home, Self-Care Instructions: Poison Day (ED), Tick Bite (ED) Additional Instructions: You received 1 time dose of doxycycline for your tick bite. Please monitor the site. Return for bulls eye appearance, fever, headache, chills, neck pain or stiffness. Prescriptions: New prednisone 20 mg tablet 60 mg PO DAILY Qty: 15 0RF hydrocortisone 2.5 % cream 1 appl topical QID PRN (Reason: rash) Qty: 30 0RF diphenhydramine HCl [Benadryl] 25 mg capsule 25 mg PO Q6H PRN (Reason: itching) Qty: 20 0RF No Action dicyclomine 20 mg tablet 20 mg PO QID Qty: 360 1RF famotidine [Pepcid] 40 mg tablet 40 mg PO BEDTIME Qty: 30 6RF omeprazole 20 mg capsule,delayed release(DR/EC) 20 mg PO DAILY 30 Days Qty: 30 6RF senna 8.6 mg capsule 17.2 mg PO BEDTIME 30 Days Qty: 60 3RF Referrals: Fernando Garza MD [Primary Care Provider] - 1 week (as needed) Interventions: ED Discharge Assessment Last Done: 06/20/21 16:51
== END 2021-06-20 16:54 | disposition home or self-care (01) ==
PROVIDERS: Emergency Provider Emergency Medicine; PCP Internal Medicine
DX: L23.7 Allergic contact dermatitis due to plants, except food (principal); S30.861A Insect bite (nonvenomous) of abdominal wall, initial encounter; W57.XXXA Bitten or stung by nonvenomous insect and other nonvenomous arthropods, initial encounter; Y93.9 Activity, unspecified; Y92.9 Unspecified place or not applicable; Y99.9 Unspecified external cause status
CPT/HCPCS: 99283

== ENCOUNTER 2021-07-13 14:13 | Emergency (ER) | payer OTHER, SELFPAY ==
--- NOTE | ~2021-07-13 | XR_ITS ---
EXAMINATION: XR KNEE, RIGHT XR TIBIA FIBULA, RIGHT CLINICAL INFORMATION: Status post fall with right knee/leg pain and swelling COMPARISON: None TECHNIQUE: 4 views of the right knee 2 views the right tibia-fibula FINDINGS: No acute visible fracture or dislocation. Mild multicompartment degenerative changes. Mild narrowing of the medial femorotibial compartment. Periarticular osteophytes along the tibial plateau. Joint spaces and alignment are otherwise maintained. No large knee joint effusion. Soft tissues are unremarkable. XR/XR knee RT 4V IMPRESSION: 1. No acute visible fracture or dislocation. 2. Mild multicompartment degenerative changes.
--- NOTE | ~2021-07-13 | US_ITS ---
EXAMINATION: US VENOUS ULTRASOUND WITH DOPPLER LOWER EXTREMITY, RIGHT CLINICAL INFORMATION: Right leg swelling COMPARISON: None TECHNIQUE: Ultrasound of the deep veins is performed from the hip to the calf with compression sonography and color and pulse Doppler assessment. Spectral analysis with color-flow imaging is performed. FINDINGS: There is normal venous compression and respiratory variation and augmented flow. The visualized common femoral vein, superficial femoral vein, profunda femoral vein, popliteal vein, and the trifurcation region shows no evidence of deep venous thrombosis. There is no significant popliteal fossa cyst. If the patient's symptoms persist, followup ultrasound in 5 days 7 days might be of value to exclude proximal propagation from a non-visualized calf vein. US/US venous duplex LE RT IMPRESSION: No DVT demonstrated in the right lower extremity.
--- NOTE | ~2021-07-13 | XR_ITS ---
EXAMINATION: XR KNEE, RIGHT XR TIBIA FIBULA, RIGHT CLINICAL INFORMATION: Status post fall with right knee/leg pain and swelling COMPARISON: None TECHNIQUE: 4 views of the right knee 2 views the right tibia-fibula FINDINGS: No acute visible fracture or dislocation. Mild multicompartment degenerative changes. Mild narrowing of the medial femorotibial compartment. Periarticular osteophytes along the tibial plateau. Joint spaces and alignment are otherwise maintained. No large knee joint effusion. Soft tissues are unremarkable. XR/XR tibia fibula RT 2V IMPRESSION: 1. No acute visible fracture or dislocation. 2. Mild multicompartment degenerative changes.
[2021-07-13 14:16] VITALS: BP 143/88; PULSE 90; RESP 18; TEMP 36.4; O2SAT 99; BMI 25.5
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
== END 2021-07-13 16:18 | disposition home or self-care (01) ==
PROVIDERS: Emergency Provider Emergency Medicine; PCP Internal Medicine
DX: S83.91XA Sprain of unspecified site of right knee, initial encounter (principal); S86.911A Strain of unspecified muscle(s) and tendon(s) at lower leg level, right leg, initial encounter; M79.89 Other specified soft tissue disorders; M79.604 Pain in right leg; V86.56XA Driver of dirt bike or motor/cross bike injured in nontraffic accident, initial encounter; Y93.89 Activity, other specified; Y92.410 Unspecified street and highway as the place of occurrence of the external cause; Y99.9 Unspecified external cause status
CPT/HCPCS: 73564; 73590; 93971; 99283; 99284

== ENCOUNTER → 2021-07-26 11:46 | Outpatient (BNVA) | payer OTHER, SELFPAY | PROVIDERS: PCP Internal Medicine; Visit Provider Nurse Practitioner | DX: K58.2 Mixed irritable bowel syndrome (principal); K21.9 Gastro-esophageal reflux disease without esophagitis; H91.90 Unspecified hearing loss, unspecified ear | CPT/HCPCS: 99212 ==

== ENCOUNTER 2021-08-25 10:24 | Outpatient (REF) | payer OTHER, SELFPAY | END 2021-08-25 10:25 | disposition home or self-care (01) | LOC: HO.HAP 10:24 | PROVIDERS: Visit Provider Internal Medicine | DX: Z46.1 Encounter for fitting and adjustment of hearing aid (principal); H90.3 Sensorineural hearing loss, bilateral | CPT/HCPCS: V5011; V5020; V5160; V5261; V5264; V5266 ==

== ENCOUNTER 2021-09-16 13:25 | Outpatient (REF) | payer OTHER, SELFPAY | END 2021-09-16 13:26 | disposition home or self-care (01) | LOC: HO.HAP 13:25 | PROVIDERS: Visit Provider Internal Medicine | DX: Z13.89 Encounter for screening for other disorder (principal) ==

== ENCOUNTER 2021-10-14 13:21 | Outpatient (REF) | payer OTHER, SELFPAY ==
--- NOTE | 2021-10-14 15:45 | MHC.AU.HFA ---
Hearing Instrument Fitting- Adult- Binaural Date of Visit: 10/14/21 Hearing Instruments Dispensed: Right Ear: Weapons System Instrument Mechanic: HAWA Resound Model: Mitul Q7 978 DWT, LumenpulseE Serial Number: [id number] Repair Warranty: 10/22/2024 Loss and Damage Warranty: 10/22/2021 Battery Size: 675 Color: Beige Tubing: Tube Lock Type of Mold: Microsonic Canal Shell Type of Wax Guard: Left Ear: Weapons System Instrument Mechanic: HAWA Resound Model: Mitul Q7 978 DWT, LumenpulseE Serial Number: [id number] Repair Warranty: 10/22/2021 Loss and Damage Warranty: 10/22/2021 Battery Size: 675 Color: Beige Tubing: Tube Lock Type of Mold: Microsonic Canal Shell Type of Wax Guard: Summary of Fitting: Ran feedback test and increased both aids overall 2 dB, then the left aid an additional 2 dB to patient comfort while in office. Increased time constant to moderate and all noise features. Volume control so each ear can be adjusted manually. Paired cell phone with aids and practiced. Unable to pair for ReSound Rachael as patient's phone is below the required iPhone 13 model. Patient is not sure he wants the cell phone paired, but may listen to music. Showed him how to delete the pairing if he wants. Dispensed 12 batteries. Already billed for fitting on 08/25/2021 for the Phonak aids returned for credit. Patient will e-mail me if having any problems. Recommendations: Recommendations: Hearing instrument care and maintenance were discussed and practiced. The instrument(s) were paired to the patient's smartphone. Please call our clinic with any questions or concerns. Diagnosis Code(s):Primary Diagnosis: H90.3 Bilateral Sensorineural Hearing Loss Services Performed: Number of Individual Battery Cells: 12 Fitting Charges already submitted on 08/25/2021 Signature:Provider: Lula Zuniga, [facility]
== END 2021-10-14 13:22 | disposition home or self-care (01) ==
LOC: HO.HAP 13:21
PROVIDERS: Visit Provider Internal Medicine
DX: Z46.1 Encounter for fitting and adjustment of hearing aid (principal); H90.3 Sensorineural hearing loss, bilateral
CPT/HCPCS: V5266

== ENCOUNTER 2021-11-05 13:27 | Outpatient (REF) | payer OTHER, SELFPAY | END 2021-11-05 13:28 | disposition home or self-care (01) | LOC: HO.HAP 13:27 | PROVIDERS: Visit Provider Internal Medicine | DX: Z13.89 Encounter for screening for other disorder (principal) ==

== ENCOUNTER 2021-11-10 16:14 | Outpatient (REF) | payer OTHER, SELFPAY ==
--- NOTE | 2021-11-10 17:11 | MHC.AU.HFU ---
Hearing Instrument Follow-Up- Binaural Date of Visit: 11/10/21 Right Ear: Apprentice/Lineman: GN Resound Model: Mitul Q7 978 DWT, BGE Serial Number: [id number] Repair Warranty: 10/22/2024 Loss and Damage Warranty: 10/22/2021 Battery Size: 675 Color: Beige Tubing: Tube Lock Type of Mold: Microsonic Canal Shell Dispensed By: [facility] Date of Fittin10/14/2021 Left Ear: Apprentice/Lineman: GN Resound Model: Mitul Q7 978 DWT, BGE Serial Number: [id number] Repair Warranty: 10/22/2021 Loss and Damage Warranty: 10/22/2021 Battery Size: 675 Color: Beige Tubing: Tube Lock Type of Mold: Microsonic Canal Shell Dispensed By: [facility] Date of Fittin10/14/2021 Follow-Up Summary: Patient reports since programming changes made last week, he is not hearing others when they talk. He is hearing better with the old Phonak aids and is now wearing them. The intermittent whoozy feeling and tinnitus continue and he is afraid the ReSound hearing aids have caused this problem. He is scheduled to see his PCP tomorrow as he wants to determine if there are any other conditions which may be related to these symptoms. 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 Patient will email me after seeing the PCP and report any changes in his symptoms. Will return the ReSound aids for credit and ordered Jdguanjia AI 1600 Power Plus BTE 13 in [facility]. Recommendations: Will email patient when aids are in. He would like to wait for the fitting appointment until he has a better sense of reason for his current symptoms. Diagnosis Code(s):Primary Diagnosis: H90.3 Bilateral Sensorineural Hearing Loss Signature:Provider: Lula Zuniga, [facility]
== END 2021-11-10 16:15 | disposition home or self-care (01) ==
LOC: HO.HAP 16:14
PROVIDERS: Visit Provider Internal Medicine
DX: Z13.89 Encounter for screening for other disorder (principal)

== ENCOUNTER 2021-11-12 09:32 | Outpatient (REF) | payer OTHER, SELFPAY ==
[2021-11-12 09:56] LABS: MANUAL DIFF FLAG NO
[2021-11-12 10:39] LABS: Appearance Urine Turbid; Color Urine Yellow; Glucose Urine UA Negative (Negative); Leukocyte Esterase Urine Trace (Negative); Nitrite Urine Negative (Negative); Specific Gravity - Urine 1.025 (1.005-1.025); Urine Blood Negative (Negative); Urine Ketones Negative (Negative); Urine Protein Trace mg/dL (Neg-Trace)
[2021-11-12 10:45] LABS: Bacteria Urine None Seen (None Seen); Hyaline Casts Urine 0-2 /LPF (0-2); RBC Urine 0-2 /HPF (0-2); Squamous Epithelial Cell Urine 0-2 /HPF (0-2); WBC Urine 0-5 /HPF (0-5)
[2021-11-12 10:48] LABS: Basophils Absolute Auto 0.1 X10*3/uL (0.0-0.2); Basophils Percent Auto 1.6 % (0-2); Eosinophils Absolute Auto 0.2 X10*3/uL (0.0-0.4); Eosinophils Percent Auto 4.7 % (0-4); Hematocrit 45.4 % (42.0-52.0); Hemoglobin 15.6 g/dl (14.0-18.0); Imm Gran Abs Auto 0.01 X10*3/uL (0.00-0.03); Imm Gran Pct Auto 0.2 % (0.0-0.4); Lymphocytes Absolute Auto 1.6 X10*3/uL (1.2-4.9); Lymphocytes Percent Auto 30.5 % (20-40); Mean Corpuscular HGB Conc 34.4 g/dl (31.0-36.0); Mean Corpuscular Hemoglobin 30.1 pg (27.0-33.0); Mean Corpuscular Volume 87.5 fL (80.0-98.0); Mean Platelet Volume 9.5 fL (9.4-12.4); Monocytes Absolute Auto 0.4 X10*3/uL (0.1-1.2); Monocytes Percent Auto 7.9 % (2-11); Neutrophils Absolute Auto 2.8 x10*3/uL (2.0-8.3); Neutrophils Percent Auto 55.1 % (45-73); Platelet Count 261 X10*3/uL (160-400); Red Blood Count 5.19 X10*6/uL (4.60-5.80); Red Cell Distribution Width 11.9 % (11.0-16.0); White Blood Count 5.1 X10*3/uL (4.8-10.8)
[2021-11-12 11:20] LABS: Alanine Aminotransferase 16 U/L (0-40); Albumin Level 4.1 g/dL (3.5-5.0); Alkaline Phosphatase 73 U/L (39-117); Anion Gap 12 (12-20); Aspartate Amino Transferase 15 U/L (5-37); Bilirubin Total 0.8 mg/dL (0.0-1.0); Blood Urea Nitrogen 16 mg/dL (9-16); Calcium 9.4 mg/dL (8.4-10.2); Carbon Dioxide 28 mmol/L (22-29); Chloride 105 mmol/L (96-108); Cholesterol 210 mg/dL; Estimated Glomerular Filt Rate > 60; Glucose Fasting 89 mg/dL (60-99); HDL Cholesterol 63 mg/dL; LDL Cholesterol Calculated 136 mg/dl; Potassium 4.5 mmol/L (3.3-5.1); Sodium 140 mmol/L (135-145); Triglycerides 56 mg/dL
[2021-11-12 11:44] LABS: Prostate Specific Antigen Scr 0.47 ng/mL (<0.05-4.0); Vitamin D 25-OH Total 34.7 ng/mL (>30)
== END 2021-11-12 09:33 | disposition home or self-care (01) ==
LOC: HO.LAB 09:32
PROVIDERS: PCP Internal Medicine; Visit Provider Internal Medicine
DX: Z00.00 Encounter for general adult medical examination without abnormal findings (principal); Z12.5 Encounter for screening for malignant neoplasm of prostate; E78.00 Pure hypercholesterolemia, unspecified; E55.9 Vitamin D deficiency, unspecified
CPT/HCPCS: 36415; 80053; 80061; 81001; 82306; 84153; 84443; 85025

== ENCOUNTER 2022-01-10 14:29 | Outpatient (REF) | payer MEDICARE, MEDICAID, SELFPAY | END 2022-01-10 14:30 | disposition home or self-care (01) | LOC: HO.HAP 14:29 | PROVIDERS: Visit Provider Internal Medicine | DX: Z46.1 Encounter for fitting and adjustment of hearing aid (principal); H90.3 Sensorineural hearing loss, bilateral | CPT/HCPCS: V5266 ==

== ENCOUNTER 2022-02-04 12:32 | Outpatient (REF) | payer MEDICARE, MEDICAID, SELFPAY | END 2022-02-04 12:33 | disposition home or self-care (01) | LOC: HO.HAP 12:32 | PROVIDERS: Visit Provider Internal Medicine | DX: Z13.89 Encounter for screening for other disorder (principal) ==

== ENCOUNTER → 2022-04-19 14:46 | Outpatient (BNVA) | payer MEDICARE, MEDICAID, SELFPAY | PROVIDERS: PCP Internal Medicine; Visit Provider Psychiatry & Neurology Neurology | DX: M54.2 Cervicalgia (principal); R42 Dizziness and giddiness | CPT/HCPCS: 99202 ==

== ENCOUNTER 2022-06-15 14:44 | Outpatient (REF) | payer MEDICARE, MEDICAID, SELFPAY ==
--- NOTE | 2022-06-15 16:11 | MHC.AU.HFU ---
Hearing Instrument Follow-Up- Binaural Date of Visit: 06/15/22 Right Ear: Matt Connelly AI 1600 BTE 13P+ Silver SN #[id number] Repair Warranty: 02/15/2025 Loss and Damage Warranty: 02/15/2025 Service Plan: 01/10/2023 Battery Size: 13 Tubing: Tube Lock Type of Mold: Microsonic Canal Shell Dispensed By: [facility] Date of Fittin10/14/2021 Left Ear: Matt Connelly AI 1600 BTE 13P+ Silver SN#[id number] Repair Warranty: 02/15/2025 Loss and Damage Warranty: 02/15/2025 Service Plan: 01/10/2023 Battery Size: 13 Tubing: Tube Lock Type of Mold: Microsonic Canal Shell Dispensed By: [facility] Date of Fittin10/14/2021 Follow-Up Summary: The patient is here today to vegetable picker batteries (42 #13 batteries dispensed and billed to insurance) and extra tone hooks. His right hearing aid tone hook slips off his hearing aid when screwed on. This will likely resolve with a new tone hook as the attachment seems to have been stripped. I could not find extra tone hooks in office so I have ordered more through Matt. He has an appointment on Monday with Mandy to address his ear molds. If the tone hooks arrive in time for that appointment then the right aid tone hook can be replaced. He would also like a few extras to replace as needed. If they do not arrive in time, he will be contacted for pick-up. I also re-tubed his right ear mold as the tubing hardened. I was going to re-tube the left ear mold but the patient had to leave for another doctor's appointment. Diagnosis Code(s): Primary Diagnosis: H90.3 Bilateral Sensorineural Hearing Loss Signature: Provider: Jessica Farrar, [facility]
== END 2022-06-15 14:45 | disposition home or self-care (01) ==
LOC: HO.HAP 14:44
PROVIDERS: Visit Provider Internal Medicine
DX: Z46.1 Encounter for fitting and adjustment of hearing aid (principal); H90.3 Sensorineural hearing loss, bilateral
CPT/HCPCS: V5266

== ENCOUNTER → 2022-06-16 15:02 | Outpatient (BNVA) | payer MEDICARE, MEDICAID, SELFPAY | PROVIDERS: PCP Internal Medicine; Visit Provider Psychiatry & Neurology Neurology | DX: M54.2 Cervicalgia (principal); R42 Dizziness and giddiness | CPT/HCPCS: 99212 ==

== ENCOUNTER 2022-06-17 15:25 | Outpatient (REF) | payer MEDICARE, MEDICAID, SELFPAY ==
--- NOTE | 2022-06-17 16:08 | MHC.AU.HA3 ---
Hearing Instrument Follow-Up- Binaural Date of Visit: 06/17/22 Right Ear: Manuel, Model, Color, Serial Number: Matt LEON 1600 BTE 13P+ Silver SN #[id number] Defect Cutter Repair Warranty: 02/15/2025 Defect Cutter Loss and Damage Warranty: 02/15/2025 [facility] Service Plan: 01/10/2023 Battery Size: 13 Earmold/Dome/CShell/SlimTip:Microsonic Canal Shell Dispensed By: [facility] Date of Fittin01/10/2022 Left Ear: Manuel, , Color, Serial Number: Matt LEON 1600 BTE 13P+ Silver SN#[id number] Defect Cutter Repair Warranty: 02/15/2025 Defect Cutter Loss and Damage Warranty: 02/15/2025 [facility] Service Plan: 01/10/2023 Battery Size: 13 Earmold/Dome/CShell/SlimTip: Microsonic Canal Shell Dispensed By: [facility] Date of Fittin01/10/2022 Follow-Up Summary: Cruzito reported that his earmolds seems to have shrunk and are now sticking out of his ear. The canal shell portion of the ear molds tend to protrude out of his tessy. Within the past two months, he is noticing more feedback from the hearing aids and the molds are not fitting as securely as when they were first fit. Impressions were taken, bilaterally, without incident. Cruzito reported that he prefers to continue with the canal shell style of ear molds; however, he is open to try a new material. He denied any allergies/sensitivity to any materials. Sent impressions to [employer] for new M45 canal shell molds. Recommendations: Patient will be contacted when materials have arrived. Recommendations (Other): Cruzito is also waiting for new tone hooks - he asked to be contacted as soon as the tone hooks arrive so he can pick them up. He will then be contacted again once ear molds arrive for the ear mold fitting. Diagnosis Code(s): Primary Diagnosis: H90.3 Bilateral Sensorineural Hearing Loss Signature: Provider: Crystal Blevins, [facility]
== END 2022-06-17 15:26 | disposition home or self-care (01) ==
LOC: HO.HAP 15:25
PROVIDERS: Visit Provider Internal Medicine
DX: Z13.89 Encounter for screening for other disorder (principal)

== ENCOUNTER 2022-07-13 15:00 | Outpatient (RCR) | payer MEDICARE, MEDICAID, SELFPAY ==
--- NOTE | 2022-05-13 16:06 | MHC.PT.EP ---
[facility] [place] Office [place] Office [place] Office [address] [phone] F: [phone] F: [phone] F: [phone] F: [phone] Physical Therapy Plan of Care Date of Evaluation: Date of Surgery: Diagnosis: Cervicalgia Assessment: Patient is a 52 y.o. male who is hearing impaired, who is referred to PT by Dr. Sheree Jimenez MD, with Dx of cervecalgia. PT diagnosis is cervical sprain/strain. Patient impairments include pain, limited ROM. Patient current functional limitations are turning to look over shoulders, lifting bags from floor. Patient will benefit from skilled PT to address aforementioned impairments and functional limitations to meet established goals. Frequency and Duration: The patient will be seen 2x/week for 4 weeks Short Term Goals: 2 weeks Patient demonstrates consistency and independence with HEP to self manage symptoms. Senior Living Goals: 4 weeks Patient presents with increased cervical rotation AROM 70 degrees bilaterally to look over shoulder to ride bicycle. Patient presents with increased cervical side bending AROM 30 degrees bilaterally to lift at work without neck strain. Treatment Plan: Modalities to reduce pain, spasms and effusion. Manual therapy to restore motion and function. Therapeutic exercise to improve strength and flexibility. Neuromuscular re-education for posture and balance. Therapeutic activities to return to functional activities of daily living. Electronically signed by: Lincoln Leblanc, PT, DPT Please sign and return to therapist. Thank you for your referral.
--- NOTE | 2022-07-27 10:31 | MHC.PT.DC ---
[facility] [place] Office [place] [facility] [place] [facility] [address] [phone] F: [phone] F: [phone] F: [phone] F: [phone] Physical Therapy Discharge Report Diagnosis: Cervicalgia Date of Surgery: Date of Evaluation: 05/13/22 Date of Discharge: 07/13/22 Treatments to Date: 6 Cancellations to Date: No Shows to Date: Discharge Status: Achieved Goals Improved Function Independent with HEP Discharge Summary: He is independent with program, does not need cues, is able to self correct posture. We discuss performing exercises fpc to build strength and endurance in postural muscles. He demonstrates improved ROM and strength and reduction of pain. He agrees to discharge this session. Electronically signed by: Lincoln Leblanc, PT, DPT Please sign and return to therapist. Thank you for your referral.
== END 2022-07-27 10:29 | disposition home or self-care (01) ==
LOC: HO.PT 15:00
PROVIDERS: PCP Internal Medicine; Visit Provider Psychiatry & Neurology Neurology
DX: M54.2 Cervicalgia (principal)
CPT/HCPCS: 97110; 97140; 97161

== ENCOUNTER 2022-08-11 10:58 | Outpatient (REF) | payer MEDICARE, MEDICAID, SELFPAY | END 2022-08-11 10:59 | disposition home or self-care (01) | LOC: HO.HAP 10:58 | PROVIDERS: Visit Provider Internal Medicine | DX: Z46.1 Encounter for fitting and adjustment of hearing aid (principal); H90.3 Sensorineural hearing loss, bilateral | CPT/HCPCS: 99499; V5264 ==

== ENCOUNTER 2022-12-06 09:45 | Outpatient (REF) | payer MEDICARE, MEDICAID, SELFPAY ==
[2022-12-06 10:15] LABS: MANUAL DIFF FLAG NO
[2022-12-06 10:41] LABS: Basophils Absolute Auto 0.1 X10*3/uL (0.0-0.2); Basophils Percent Auto 1.9 % (0-2); Eosinophils Absolute Auto 0.2 X10*3/uL (0.0-0.4); Eosinophils Percent Auto 4.2 % (0-4); Hematocrit 46.9 % (42.0-52.0); Hemoglobin 16.2 g/dl (14.0-18.0); Imm Gran Abs Auto 0.01 X10*3/uL (0.00-0.03); Imm Gran Pct Auto 0.2 % (0.0-0.4); Lymphocytes Absolute Auto 1.3 X10*3/uL (1.2-4.9); Lymphocytes Percent Auto 31.4 % (20-40); Mean Corpuscular HGB Conc 34.5 g/dl (31.0-36.0); Mean Corpuscular Hemoglobin 30.5 pg (27.0-33.0); Mean Corpuscular Volume 88.2 fL (80.0-98.0); Mean Platelet Volume 9.5 fL (9.4-12.4); Monocytes Absolute Auto 0.3 X10*3/uL (0.1-1.2); Monocytes Percent Auto 7.3 % (2-11); Neutrophils Absolute Auto 2.3 x10*3/uL (2.0-8.3); Platelet Count 260 X10*3/uL (160-400); Red Blood Count 5.32 X10*6/uL (4.60-5.80); Red Cell Distribution Width 11.9 % (11.0-16.0); White Blood Count 4.2 X10*3/uL (4.8-10.8)
[2022-12-06 11:05] LABS: Appearance Urine Clear; Color Urine Yellow; Glucose Urine UA Negative (Negative); Leukocyte Esterase Urine Negative (Negative); Nitrite Urine Negative (Negative); PH 6.5 (5.0-9.0); Urine Blood Negative (Negative); Urine Ketones Negative (Negative); Urine Protein Negative (Neg-Trace)
[2022-12-06 12:03] LABS: Prostate Specific Antigen Scr 0.42 ng/mL (<0.05-4.0)
[2022-12-06 12:07] LABS: Alanine Aminotransferase 15 U/L (0-40); Albumin Level 4.1 g/dL (3.5-5.0); Alkaline Phosphatase 68 U/L (39-117); Anion Gap 12 (12-20); Aspartate Amino Transferase 17 U/L (5-37); Bilirubin Total 0.8 mg/dL (0.0-1.0); Blood Urea Nitrogen 16 mg/dL (9-16); Calcium 9.8 mg/dL (8.4-10.2); Carbon Dioxide 26 mmol/L (22-29); Chloride 105 mmol/L (96-108); Cholesterol 202 mg/dL (<200); Estimated Glomerular Filt Rate > 60; Glucose Fasting 87 mg/dL (60-99); HDL Cholesterol 60 mg/dL (>40); LDL Cholesterol Calculated 132 mg/dL (<100); Potassium 5.3 mmol/L (3.3-5.1); Sodium 138 mmol/L (135-145); Total Protein 7.3 g/dL (6.5-8.0); Triglycerides 51 mg/dL (<150)
[2022-12-06 12:09] LABS: TSH reflex Free T4 4.03 uIU/mL (0.32-4.0); Vitamin D 25-OH Total 51.9 ng/mL (>30)
[2022-12-06 13:33] LABS: Free T4 (Free Thyroxine) 0.76 ng/dL (0.71-1.85)
== END 2022-12-06 09:46 | disposition home or self-care (01) ==
LOC: HO.LAB 09:45
PROVIDERS: PCP Internal Medicine; Visit Provider Internal Medicine
DX: Z00.00 Encounter for general adult medical examination without abnormal findings (principal); E55.9 Vitamin D deficiency, unspecified; R30.0 Dysuria; E78.00 Pure hypercholesterolemia, unspecified; Z12.5 Encounter for screening for malignant neoplasm of prostate
CPT/HCPCS: 36415; 80053; 80061; 81003; 82306; 84153; 84439; 84443; 85025

== ENCOUNTER 2022-12-12 09:27 | Outpatient (AMB) | payer MEDICARE, MEDICAID, SELFPAY ==
--- NOTE | 2022-12-12 09:31 | MHC.PC.OV ---
Vital Signs 12/12/22 09:32 Height 5 ft 7 in Weight 168 lb BMI 26.3 BP 118/80 Blood Pressure Location Lt brachial Position Sitting Pulse 65 Pulse Source Pulse Oximeter Pulse Oximetry (%) 97 Oxygen Delivery Method Room Air Intake Visit Reasons: Annual exam Rehabilitation Program Coordinator Required: No Accompanied by: Self / Same As Patient Allergies No Known Allergies [No Known Allergies*] Allergy (Verified 12/12/22 09:44) Medication List - Last Reconciled 12/12/22 by Fernando Garza MD No Known Home Meds Tobacco use date assessed: 12/12/22 Dental Screening Dental Screen Date: 12/12/22 Did you have a dental visit in the last 12 months?: No Did you have a dental problem in the last 6 months where you did not have access to dental care?: No Was dental information given to patient?: No HPI Annual exam HPI Details Patient comes in today for his annual physical examination States that he feels okay Was seen by urology a few weeks ago and was supposed to be started on some Abx (Bactrim DS BID x 21 days) for chronic prostatitis but states that his pharmacy supposedly never got the Rx He denies any headaches or dizziness Denies any chest pains, no SOB No nausea/vomiting, no abdominal pain No change in bowel habits noted Still has some dysuria and occasional urgency; has not noticed any blood in his urine Had his follow up labs done last week - to discuss his results He is up-to-date with his colon cancer screening and is due to repeat colonoscopy in 2025 [facility] Medical History Congenital deafness H. pylori infection Normal colonoscopy Overweight (BMI 25.0-29.9) Anxiety GERD without esophagitis Hyperlipidemia Surgical History Hx of wisdom tooth extraction H/O colonoscopy Family History Maternal Grandfather Colon cancer Social History Housing: House Alcohol intake: current Alcohol intake frequency: holidays/special occasions only Patient Tobacco Use Status: Never used Tobacco Second Hand Smoke Exposure: Yes service: No Current occupational status: unemployed Cognitive needs: Yes Hearing needs: Yes Vision needs: No Questionnaire PHQ-9 Over the last 2 weeks, how often have you been bothered by any of the following problems? 1. Little interest or pleasure in doing things: not at all 2. Feeling down, depressed, or hopeless: not at all 3. Trouble falling or staying asleep, or sleeping too much: not at all 4. Feeling tired or having little energy: not at all 5. Poor appetite or overeating: not at all 6. Feeling bad about yourself - or that you are a failure or have let yourself or your family down: not at all 7. Trouble concentrating on things, such as reading the newspaper or watching television: not at all 8. Moving or speaking so slowly that other people could have noticed. Or the opposite - being so fidgety or restless that you have been moving around a lot more than usual: not at all 9. Thoughts that you would be better off or of hurting yourself in some way: not at all Total score: 0 Depression Screening Interpretation: Negative 07256 - PHQ-9 Billing: Yes Source: Developed by Drs. Antonio Shanks, Helena Olivas, Vasu Duarte and colleagues, with an educational sally from [employer]. Thrive Questionnaire Date Thrive assessed: 12/12/22 I am a: Parent/Caregiver What is your living situation today?: I have a steady place to live Within the past 12 months, did the food you bought not last and you didn't have the money to get more?: Never true Within the past 12 months, did you worry whether your food would run out before you got money to buy more?: Never true Do you have trouble paying for medicines?: No Do you have trouble getting transportation to medical appointments?: No Do you have trouble paying your heating and electricity bill?: No Do you have trouble taking care of your child, family member or friend?: No Do you have trouble with day-to-day activities such as bathing, preparing meals, shopping, managing finances, etc.?: No Are you currently unemployed and looking for a job?: No Are you interested in more education?: No Please select the resources that you would like help with: None Currently or been in a relationship where the following occur: no concerns reported AUDIT C Alcohol Use Questionnaire (AUDIT-C) 1. How often do you have a drink containing alcohol?: Monthly or less 2. How many drinks containing alcohol do you have on a typical day when you are drinking?: 1 or 2 3. How often do you have six or more drinks on one occasion?: Never Total Score: 1 Score Reviewed/Action Taken: Yes SADAF-7 AMB Questionnaire SADAF-7 Date SADAF - 7 assessed: 12/12/22 Feeling nervous, anxious, or on edge: 0 = Not at all Not being able to stop or control worryin = Not at all Worrying too much about different things: 0 = Not at all Trouble relaxin = Not at all Being so restless that it is hard to sit still: 0 = Not at all Becoming easily annoyed or irritable: 0 = Not at all Feeling afraid as if something awful might happen: 0 = Not at all Total SADAF-7 score (0-4 normal; 5-9 mild; 10-14 moderate; 15-21 severe): 0 Source: Developed by Drs. Antonio Shanks, Helena Olivas, Vasu Duarte and colleagues, with an educational sally from [employer]. Review of Systems Const Denies chills, Denies fatigue, Denies fever(s), Denies headache(s), Denies malaise and Denies weakness Eyes Denies blurry vision, Denies change in vision, Denies irritation and Denies itchy eyes ENT Denies dysphagia, Denies dizziness, Denies otalgia, Denies headache(s), Denies nasal congestion, Denies neck pain, Denies odynophagia and Denies sore throat Card Denies chest pain, Denies rapid heart rate, Denies irregular heart rhythm, Denies palpitations and Denies dyspnea Resp Denies chest congestion, Denies cough, Denies dyspnea and Denies wheezing GI Denies abdominal pain, Denies bloating, Denies constipation, Denies dysphagia, Denies heartburn, Denies diarrhea, Denies nausea, Denies odynophagia and Denies vomiting Denies hematuria, Denies difficulty urinating, Reports dysuria (on and off), Reports painful ejaculations, Denies urinary frequency and Reports urinary urgency (occasional) Musc Denies back pain, Denies arthralgias, Denies joint swelling, Denies muscle weakness and Denies neck pain Skin/Breast Denies change in pigmentation, Denies lesions, Denies rash and Denies unusual bruising Neuro Denies dizziness, Denies headache(s), Denies paresthesias and Denies weakness Endo Denies fatigue and Denies palpitations Aller/Immun Denies itchy eyes and Denies wheezing Physical exam (Primary Care) Vital Signs: Last Vital Signs Pulse 65 12/12/22 09:32 BP 118/80 12/12/22 09:32 Pulse Ox 97 12/12/22 09:32 Oxygen Delivery Method Room Air 12/12/22 09:32 BMI result Body Mass Index 26.3 Tobacco/Smoking Status: Tobacco use Status Tobacco use date assessed 12/12/22 12/12/22 09:36 Patient Tobacco Use Status Never used Tobacco 12/12/22 09:36 PHQ-9: PHQ-9 Score PHQ-9: Total score 0 12/12/22 09:36 Depression Screening Interpretation: Negative Thrive Assessment: Date of Thrive Assessment Date Thrive assessed 12/12/22 12/12/22 09:36 Currently or been in a relationship where the following occur: no concerns reported Const General: no acute distress, alert and awake Orientation/consciousness: patient oriented x3 HENMT Head: Yes normocephalic and Yes atraumatic Ears: external ears normal, TM's normal bilaterally and EAC's normal General nose exam: No nasal discharge present Face and sinus: Yes normal facial exam and Yes sinuses nontender Teeth and gingiva: dentition normal Throat: Yes posterior oropharynx normal and Yes tonsils normal (no TP congestion) Eyes Eyelids: Yes eyelids normal Conjunctivae: conjunctivae normal Pupils: Equal, round and reactive pupils present EOM: EOMs intact bilaterally Neck Neck: Yes no lymphadenopathy and Yes supple Thyroid: Thyroid normal Resp Auscultation: clear to auscultation bilaterally, no rales and no wheezes Cardio Rate: regular rate Rhythm: regular rhythm Heart sounds: no murmurs GI Palpation (GI): Soft to palpation, nontender and No hepatosplenomegaly present Auscultation: normal bowel sounds General: Yes no CVA tenderness Back/Spine/Pelvis Back: no CVA tenderness Thoracic/Lumbar Spine: thoracic and lumbar spine normal to inspection Skin Lesions: no lesions Rashes: no rashes Neuro General: patient oriented x3, moves all extremities, no focal motor deficits and CN's II-XI intact bilaterally Cranial nerves: Yes Equal, round and reactive pupils present Cognition (Neuro): normal cognition Gait exam (Neuro): Normal gait present Extrem General: Yes no clubbing, cyanosis or edema Results Reviewed Results Reviewed: Laboratory Tests 12/06/22 12/06/22 12/06/22 10:13 10:13 10:15 WBC 4.2 L Hgb 16.2 Hct 46.9 Plt Count 260 Sodium 138 Potassium 5.3 H Creatinine 1.04 Estimated GFR > 60 Fasting Glucose 87 Calcium 9.8 AST 17 ALT 15 Triglycerides 51 Cholesterol 202 H LDL Cholesterol, Calc 132 H HDL Cholesterol 60 PSA Screen 0.42 25-OH Vitamin D Total 51.9 TSH 4.03 H Free T4 0.76 Ur Specific [place] Urine Protein Urine Glucose (UA) Negative Urine Blood Negative 12/06/22 10:15 WBC Hgb Hct Plt Count Sodium Potassium Creatinine Estimated GFR Fasting Glucose Calcium AST ALT Triglycerides Cholesterol LDL Cholesterol, Calc HDL Cholesterol PSA Screen 25-OH Vitamin D Total TSH Free T4 Ur Specific [place] 1.010 Urine Protein Negative Urine Glucose (UA) Urine Blood Assessment and Plan Assessment & Plan (1) Annual physical exam: Code(s): Z00.00 - Encounter for general adult medical examination without abnormal findings Plan: Results of his labs done last week reviewed and discussed with patient He is up-to-date with his cancer screenings - will be due for repeat colonoscopy in 2025 (2) Hyperlipidemia: Code(s): E78.5 - Hyperlipidemia, unspecified Qualifiers: Hyperlipidemia type: unspecified Qualified Code(s): E78.5 - Hyperlipidemia, unspecified Plan: Advised that his cholesterol levels are mostly unchanged from before and are just slighlty above the cut-off for high cholesterol levels Reinforced low-cholesterol diet Will recheck his labs and fasting lipids in 4 months for follow-up (3) Congenital deafness: Comment: has speech impediment related to his deafness Code(s): H90.5 - Unspecified sensorineural hearing loss Plan: Currently has hearing aids in place (4) Irritable bowel syndrome with both constipation and diarrhea: Code(s): K58.2 - Mixed irritable bowel syndrome Plan: States that his GI symptoms have calmed down a lot and have not bothered him lately Was taking Dicyclomine 20 mg QID and Senna 8.6 mg 2 tablets Q HS PRN but has not had to take his Rx lately Follow up with GI as scheduled (5) GERD without esophagitis: Code(s): K21.9 - Gastro-esophageal reflux disease without esophagitis Plan: Dietary restrictions reinforced Used to take Omeprazole 20 mg QD and Famotidine 40 mg Q HS but states that he also has not had to take any Rx lately (6) Chronic prostatitis: Code(s): N41.1 - Chronic prostatitis Plan: Was seen by urology a few weeks ago and was supposed to be started on Bactrim DS BID x 21 days for chronic prostatitis but patient states that his pharmacy supposedly never received his Rx Will send in Rx for Bactrim DS BID x 21 days, as per urology instructions, for his chronic prostatitis States that he has a follow up appt with urology again sometime in February 2023 (7) Anxiety: Code(s): F41.9 - Anxiety disorder, unspecified Plan: Continue Diphenhydramine 25 mg Q 6 hours PRN (8) Overweight (BMI 25.0-29.9): Code(s): E66.3 - Overweight Plan: Reinforced diet/exercise as tolerated /lose weight Plan Follow up in 4 months Orders: Orders Vitamin D 25-OH Total 4 Months E55.9 - Vitamin D deficiency, unspecified Complete Blood Count Auto Diff 4 Months I10 - Essential (primary) hypertension Comprehensive [place]. Panel Fast 4 Months E78.00 - Pure hypercholesterolemia, unspecified Lipid Panel 4 Months E78.00 - Pure hypercholesterolemia, unspecified TSH reflex Free T4 4 Months E78.00 - Pure hypercholesterolemia, unspecified UA CC w/rflx Micro + Cult 4 Months R30.0 - Dysuria Medications: New sulfamethoxazole-trimethoprim 800-160 mg (Bactrim DS) 1 tab PO BID 21 days 42 tabs 0RF N41.1 - Chronic prostatitis Coding Level of Care Code Est Pt Prev Care 40-64y(89053) Diagnoses Annual physical exam Z00.00 Hyperlipidemia, unspecified hyperlipidemia type E78.5 Hyperlipidemia type: unspecified Congenital deafness H90.5 Irritable bowel syndrome with both constipation and diarrhea K58.2 GERD without esophagitis K21.9 Chronic prostatitis N41.1 Anxiety F41.9 Overweight (BMI 25.0-29.9) E66.3
[2022-12-12 09:32] VITALS: BP 118/80; PULSE 65; O2SAT 97; BMI 26.3
== END 2022-12-12 09:56 | disposition home or self-care (01) ==
PROVIDERS: PCP Internal Medicine; Visit Provider Internal Medicine
DX: Z00.00 Encounter for general adult medical examination without abnormal findings (principal); K58.2 Mixed irritable bowel syndrome; K21.9 Gastro-esophageal reflux disease without esophagitis; F41.9 Anxiety disorder, unspecified; E78.5 Hyperlipidemia, unspecified; H90.5 Unspecified sensorineural hearing loss; N41.1 Chronic prostatitis; E66.3 Overweight
CPT/HCPCS: 99396

== ENCOUNTER 2022-12-30 09:15 | Outpatient (AMB) | payer MEDICARE, MEDICAID, SELFPAY ==
[2022-12-30 09:17] VITALS: BP 90/60; PULSE 67; RESP 16; O2SAT 97; BMI 26.1
--- NOTE | 2022-12-30 09:17 | A.OFFPC_ITS ---
Vital Signs 12/30/22 09:17 Height 5 ft 7 in Weight 166 lb 8 oz BMI 26.1 BP 90/60 Blood Pressure Location Lt brachial Position Sitting Respiration 16 Pulse 67 Pulse Source Pulse Oximeter Pulse Oximetry (%) 97 Oxygen Delivery Method Room Air Intake Visit Reasons: medication Side Effects Intake Note: Pt is here for medication side to Bactrim. 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 Accompanied by: Self / Same As Patient Allergies sulfamethoxazole [From Bactrim] Adverse Reaction (Intermediate, Verified 12/30/22 09:46) Hives trimethoprim [From Bactrim] Adverse Reaction (Intermediate, Verified 12/30/22 09:46) Hives Medication List - Last Reconciled 12/30/22 by Fernando Garza MD No Known Home Meds Tobacco use date assessed: 12/12/22 Dental Screening Dental Screen Date: 12/30/22 Did you have a dental visit in the last 12 months?: No Did you have a dental problem in the last 6 months where you did not have access to dental care?: No Was dental information given to patient?: Yes HPI medication Side Effects HPI Details Patient comes in today for further evaluation / discussion regarding his recent allergic reaction to the Bactrim Abx Rx that he was prescribed about 2 to 3 weeks ago for his chronic prostatitis States that he did not have any problems since he started taking his Bactrim DS until a few days ago when he started breaking out in some hives and urticarial lesions all over Was not sure what to make of it initially as he has been on Bactrim DS for about 2 weeks now but his mother noticed them and immediately recognized that he appears to be having an allergic reaction to his medication and called up here and they were given instructions to stop taking Bactrim DS right away Patient states that he has been taking OTC Cetirizine 10 mg QD for the past few days and that the lesions appear to be clearing up He denies any trouble swallowing or breathing over the past few days Denies any fever No other acute complaints or symptoms are noted [facility] Medical History Congenital deafness H. pylori infection Normal colonoscopy Overweight (BMI 25.0-29.9) Anxiety GERD without esophagitis Hyperlipidemia Surgical History Hx of wisdom tooth extraction H/O colonoscopy Family History Maternal Grandfather Colon cancer Social History Housing: House Alcohol intake: current Alcohol intake frequency: holidays/special occasions only Patient Tobacco Use Status: Never used Tobacco Second Hand Smoke Exposure: Yes service: No Current occupational status: unemployed Cognitive needs: Yes Hearing needs: Yes Vision needs: No Questionnaire Thrive Questionnaire Date Thrive assessed: 12/12/22 SADAF-7 AMB Questionnaire SADAF-7 Date SADAF - 7 assessed: 12/12/22 Source: Developed by Drs. Antonio Shanks, Helena Olivas, Vasu Duarte and colleagues, with an educational sally from [employer]. Review of Systems Const Denies fatigue, Denies fever(s) and Denies headache(s) ENT Denies dysphagia, Denies dizziness, Denies headache(s) and Denies sore throat Card Denies chest pain, Denies palpitations and Denies dyspnea Resp Denies cough and Denies dyspnea GI Denies abdominal pain, Denies constipation, Denies dysphagia, Denies diarrhea, Denies nausea and Denies vomiting Denies dysuria and Denies nocturia Skin/Breast Details: (+) scattered erythematous urticarial lesions Neuro Denies dizziness and Denies headache(s) Endo Denies fatigue and Denies palpitations Physical exam (Primary Care) Vital Signs: Last Vital Signs Pulse 67 12/30/22 09:17 Resp 16 12/30/22 09:17 BP 90/60 12/30/22 09:17 Pulse Ox 97 12/30/22 09:17 Oxygen Delivery Method Room Air 12/30/22 09:17 BMI result Body Mass Index 26.1 Tobacco/Smoking Status: Tobacco use Status Tobacco use date assessed 12/12/22 12/30/22 09:17 Patient Tobacco Use Status Never used Tobacco 12/30/22 09:17 Thrive Assessment: Date of Thrive Assessment Date Thrive assessed 12/12/22 12/30/22 09:17 Const General: no acute distress and alert Neck Neck: Yes no lymphadenopathy and Yes supple Resp Auscultation: clear to auscultation bilaterally, no rales and no wheezes Cardio Rate: regular rate Rhythm: regular rhythm Heart sounds: no murmurs GI Palpation (GI): Soft to palpation, nontender and No hepatosplenomegaly present Skin Other: (+) few (residual) scattered erythematous urticarial rash/lesions, mostly over his forearms Extrem General: Yes no clubbing, cyanosis or edema Assessment and Plan Assessment & Plan (1) Allergic reaction due to antibacterial drug: Code(s): T36.95XA - Adverse effect of unspecified systemic antibiotic, initial encounter Plan: Confirmed to patient that his recent rash are most likely due to Sulfa allergy (Bactrim DS) and his allergy list is now updated to include allergy to Sulfa He is instructed to continue taking his Cetirizine 10 mg QD until all of the rash he has have cleared up completely (2) Chronic prostatitis: Code(s): N41.1 - Chronic prostatitis Plan: D/C Bactrim DS - was able to take about 15 days of the Abx until he started breaking out in hives Will start him instead on Cipro 500 mg BID x 10 days to complete his chronic prostatitis Tx Follow up with urology as scheduled Plan Follow up as scheduled in March 2023 Medications: New ciprofloxacin HCl 500 mg PO BID 10 days 20 tabs 0RF N41.1 - Chronic prostatitis Coding Level of Care Code Est Pt Level 3 (22170) Diagnoses Allergic reaction due to antibacterial drug T36.95XA Chronic prostatitis N41.1
== END 2022-12-30 10:48 | disposition home or self-care (01) ==
PROVIDERS: PCP Internal Medicine; Visit Provider Internal Medicine
DX: T36.95XA Adverse effect of unspecified systemic antibiotic, initial encounter (principal); N41.1 Chronic prostatitis
CPT/HCPCS: 99213

== ENCOUNTER 2023-01-09 11:43 | Outpatient (REF) | payer MEDICAID, SELFPAY | END 2023-01-09 11:44 | disposition home or self-care (01) | LOC: HO.HAP 11:43 | PROVIDERS: Visit Provider Internal Medicine | DX: Z46.1 Encounter for fitting and adjustment of hearing aid (principal) | CPT/HCPCS: V5266 ==

== ENCOUNTER 2023-03-29 13:56 | Outpatient (REF) | payer MEDICARE, MEDICAID, SELFPAY ==
--- NOTE | 2023-03-29 15:32 | MHC.AU.HA3 ---
Hearing Instrument Follow-Up- Binaural Date of Visit: 03/29/23 Right Ear: Manuel, Model, Color, Serial Number: Matt LEON 1600 [id number] [id number] SN: [id number] Color: Silver [employer] Animal [employer]er Repair Warranty: 02/15/2025 [employer] Animal [employer] Loss and Damage Warranty: 02/15/2025 [facility] Service Plan: 01/10/2023 Battery Size: 13 Earmold/Dome/CShell/SlimTip:Microsonic Canal Shell Dispensed By: [facility] Date of Fittin01/10/2022 Left Ear: Manuel, , Color, Serial Number: Matt LEON 1600 [id number] [id number] SN: [id number] Color: Silver [employer] Animal Trainer Repair Warranty: 02/15/2025 [employer] Loss and Damage Warranty: 02/15/2025 [facility] Service Plan: 01/10/2023 Battery Size: 13 Earmold/Dome/CShell/SlimTip: Microsonic Canal Shell Dispensed By: [facility] Date of Fittin01/10/2022 Follow-Up Summary: Cruzito reported his tone hooks continually spin on his hearing aids. Threads of tone hooks broken. Tubes also hard. Cleaned both hearing aids and ear molds. Replaced both tone hooks and tubing. Vacuumed microphones. Listening check demonstrated hearing aids amplifying clearly. Cruzito also inquired about wax guards as he read it in the hearing aid manual. Described difference between BTE and RITE hearing aids and advised his style of hearing aid does not use wax guards. Also brandon'ed how to remove microphone covers to brush out microphones at Cruzito's request. Cruzito purchased 6 extra tone hooks and 6 extra tubes to be able to change himself as he has done in the past. Recommendations: Hearing instrument follow-up or maintenance as needed. Please contact our clinic with any questions or concerns. Diagnosis Code(s): Primary Diagnosis: H90.3 Bilateral Sensorineural Hearing Loss Signature: Provider: Crystal Blevins, [facility]
== END 2023-03-29 13:57 | disposition home or self-care (01) ==
LOC: HO.HAP 13:56
PROVIDERS: Visit Provider Internal Medicine
DX: Z46.1 Encounter for fitting and adjustment of hearing aid (principal); H90.3 Sensorineural hearing loss, bilateral
CPT/HCPCS: 92593; 99499; V5266

== ENCOUNTER 2023-03-29 14:30 | Outpatient (REF) | payer SELFPAY | END 2023-03-29 14:31 | disposition home or self-care (01) | LOC: HO.HAP 14:30 | PROVIDERS: Visit Provider Internal Medicine | DX: Z46.1 Encounter for fitting and adjustment of hearing aid (principal); H90.3 Sensorineural hearing loss, bilateral | CPT/HCPCS: V5267 ==

== ENCOUNTER 2023-11-24 12:02 | Outpatient (REF) | payer MEDICARE, MEDICAID, SELFPAY | END 2023-11-24 12:03 | disposition home or self-care (01) | LOC: HO.HAP 12:02 | PROVIDERS: Visit Provider Internal Medicine | DX: Z46.1 Encounter for fitting and adjustment of hearing aid (principal); H90.3 Sensorineural hearing loss, bilateral | CPT/HCPCS: V5266 ==

== ENCOUNTER 2023-11-24 13:39 | Outpatient (REF) | payer SELFPAY | END 2023-11-24 13:40 | disposition home or self-care (01) | LOC: HO.HAP 13:39 | PROVIDERS: Visit Provider Internal Medicine | DX: Z46.1 Encounter for fitting and adjustment of hearing aid (principal); H90.3 Sensorineural hearing loss, bilateral | CPT/HCPCS: V5267 ==

== ENCOUNTER 2023-12-19 19:53 | Emergency (ER) | payer MEDICARE, MEDICAID, SELFPAY ==
--- NOTE | ~2023-12-19 | US_ITS ---
EXAMINATION: US SCROTUM CLINICAL INFORMATION: Scrotal pain. COMPARISON: None available. TECHNIQUE: A sonogram of the scrotum was performed assessing mckinley-scale appearance and color Doppler flow. Spectral Doppler analysis of the arterial and venous flow were performed in the testes bilaterally. FINDINGS: RIGHT: Right testicle measures 4.0 x 2.4 x 2.9 cm, volume 14.3 mL. No focal testicular parenchymal lesions are visualized. Spectral Doppler analysis of the arterial and venous flow is normal in the right testis. Right epididymal head is normal in size. 2 mm sized benign cyst is present. No right hydrocele or varicocele is seen. Right epididymal Doppler flow is normal. LEFT: Left testicle measures 3.8 x 2.0 x 3.1 cm, volume 12.0 mL. No focal testicular parenchymal lesions are visualized. Spectral Doppler analysis of the arterial and venous flow is normal in the left testis. Left epididymal head is normal in size. There is a 2 mm cyst seen in the head of the left epididymis No left hydrocele or varicocele is seen. Left epididymal Doppler flow is normal. US/US scrotum IMPRESSION: No significant abnormality is seen. Electronically signed by: Codey Cortez MD 12/19/2023 10:12 PM EDT
--- NOTE | ~2023-12-19 | US_ITS ---
EXAMINATION: US SCROTUM CLINICAL INFORMATION: Scrotal pain. COMPARISON: None available. TECHNIQUE: A sonogram of the scrotum was performed assessing mckinley-scale appearance and color Doppler flow. Spectral Doppler analysis of the arterial and venous flow were performed in the testes bilaterally. FINDINGS: RIGHT: Right testicle measures 4.0 x 2.4 x 2.9 cm, volume 14.3 mL. No focal testicular parenchymal lesions are visualized. Spectral Doppler analysis of the arterial and venous flow is normal in the right testis. Right epididymal head is normal in size. 2 mm sized benign cyst is present. No right hydrocele or varicocele is seen. Right epididymal Doppler flow is normal. LEFT: Left testicle measures 3.8 x 2.0 x 3.1 cm, volume 12.0 mL. No focal testicular parenchymal lesions are visualized. Spectral Doppler analysis of the arterial and venous flow is normal in the left testis. Left epididymal head is normal in size. There is a 2 mm cyst seen in the head of the left epididymis No left hydrocele or varicocele is seen. Left epididymal Doppler flow is normal. US/US scrotum doppler IMPRESSION: No significant abnormality is seen. Electronically signed by: Codey Cortez MD 12/19/2023 10:12 PM EDT
[2023-12-19 20:01] VITALS: BP 142/85; PULSE 76; RESP 18; TEMP 36.5; O2SAT 97; BMI 25.1
--- NOTE | 2023-12-19 20:02 | ED.GENADULT ---
HPI - General Adult General Chief complaint: Urogenital-Male Stated complaint: testicular pain and pressure Time Seen by Provider: 12/19/23 22:28 Source: patient Mode of arrival: ambulatory Limitations: no limitations History of Present Illness ED Provider: kim DELGADO narrative: Patient is 53 years old out of hearing complaining of pain bilateral groin area for last 3 weeks specially when he lifts anything heavy no swelling of the testicle no direct injury no penile discharge no urinary complaints Related Data Previous Rx's ?Medication ?Instructions ?Recorded ciprofloxacin HCl 500 mg tablet 500 mg PO BID 10 days #20 tabs 12/30/22 ibuprofen 600 mg tablet 600 mg PO Q6H PRN fever or pain 12/19/23 #30 tabs Allergies Allergy/AdvReac Type Severity Reaction Status Date / Time sulfamethoxazole AdvReac Intermediate Hives Verified 12/19/23 20:03 [From Bactrim] trimethoprim [From Bactrim] AdvReac Intermediate Hives Verified 12/19/23 20:03 Review of Systems Review of Systems: Yes all other systems are reviewed and are negative PMFSH Past Medical History Medical History Congenital deafness H. pylori infection Normal colonoscopy Overweight (BMI 25.0-29.9) Anxiety GERD without esophagitis Hyperlipidemia Surgical History Hx of wisdom tooth extraction H/O colonoscopy Family History Family History Maternal Grandfather Colon cancer Social History Social History Housing: House Alcohol intake: current Alcohol intake frequency: holidays/special occasions only Patient Tobacco Use Status: Never used Tobacco Second Hand Smoke Exposure: Yes Advance Directives: No Advance Directives Information Provided: No service: No Current occupational status: unemployed Cognitive needs: Yes Hearing needs: Yes Vision needs: No Physical Exam ED Vital Signs: Vital Signs - 24 hr 12/19/23 20:01 Temperature 97.7 F Pulse Rate 76 Respiratory Rate 18 Blood Pressure 142/85 H Pulse Oximetry 97 Oxygen Delivery Method Room Air BMI result Body Mass Index 25.1 Appearance: Alert. Oriented X3. No acute distress. Eyes: No pallor or icterus ENT: Pharynx normal. Oral Mucosa moist Neck: Normal inspection. Neck supple. CVS: Normal heart rate and rhythm. Pulses normal. Respiratory: No respiratory distress. Equal air entry bilateral, no wheezing/rales/rhonchi Abdomen: Soft and nontender. Bowel sounds are present, no mass palpable, no CVA tenderness Skin: Skin warm and dry. Normal skin color. Normal skin turgor. normal scrotum normal testicle no penile discharge no hernia no hydrocele Extremities: No lower extremity edema. No calf tenderness Neuro: Oriented X 3. No motor deficit. Course Course Course Narrative: RME, this is a rapid medical exam performed by Raf Bello please refer to primary provider for complete H&P- 53-year-old male presents for evaluation of right testicular pain. Pain started about 2 weeks ago after lifting heavy. His pain is worsening. Plan for scrotal ultrasound, labs, urinalysis Medications Administered Discontinued Medications Generic Name Dose Route Start Last Admin Trade Name Freq PRN Reason Stop Dose Admin Ibuprofen 600 mg 12/19/23 22:33 12/19/23 22:49 Ibuprofen 600 Mg Tablet PO 12/19/23 22:34 600 mg ONCE ONE Administration Medical Decision Making Medical Decision Making [facility] Narrative: Patient with bilateral groin strain likely happened 3 weeks ago ultrasound scrotum negative no hernia or hydrocele patient home on ibuprofen Differential Diagnosis Differential Diagnoses: The differential diagnosis associated with the presentation includes Lab Data [facility] Lab Attestation statement: I reviewed the patient's lab results. 12/19/23 20:46 12/19/23 20:46 Labs: Lab Results 12/19/23 12/19/23 Range/Units 20:46 20:55 WBC 5.6 (4.8-10.8) X10*3/uL RBC 5.01 (4.60-5.80) X10*6/uL Hgb 15.7 (14.0-18.0) g/dl Hct 44.2 (42.0-52.0) % MCV 88.2 (80.0-98.0) fL MCH 31.3 (27.0-33.0) pg MCHC 35.5 (31.0-36.0) g/dl RDW 11.7 (11.0-16.0) % Plt Count 271 (160-400) X10*3/uL MPV 9.1 L (9.4-12.4) fL Immature Gran % (Auto) 0.2 (0.0-0.4) % Neut % (Auto) 47.9 (45-73) % Lymph % (Auto) 39.5 (20-40) % [place] % (Auto) 6.8 (2-11) % Eos % (Auto) 4.0 (0-4) % Baso % (Auto) 1.6 (0-2) % Lymph # (Auto) 2.2 (1.2-4.9) X10*3/uL [place] # (Auto) 0.4 (0.1-1.2) X10*3/uL Eos # (Auto) 0.2 (0.0-0.4) X10*3/uL Baso # (Auto) 0.1 (0.0-0.2) X10*3/uL Abs Immat Gran (auto) 0.01 (0.00-0.03) X10*3/uL Absolute Neuts (auto) 2.7 (2.0-8.3) x10*3/uL Absolute Nucleated RBC 0.000 (0.0-0.012) X10*3/uL Nucleated RBC % (auto) 0.0 (0.0-0.2) /100WBC Sodium 142 (135-145) mmol/L Potassium 3.9 (3.3-5.1) mmol/L Chloride 107 (96-108) mmol/L Carbon Dioxide 28 (22-29) mmol/L Anion Gap 11 L (12-20) BUN 14 (9-16) mg/dL Creatinine 1.05 (0.5-1.4) mg/dL Estim Creat Clear Calc 74.3 Estimated GFR > 60 Random Glucose 91 (60-115) mg/dL Calcium 9.5 (8.4-10.2) mg/dL Total Bilirubin 0.4 (0.0-1.0) mg/dL AST 16 (5-37) U/L ALT 14 (0-40) U/L Alkaline Phosphatase 73 (39-117) U/L Total Protein 7.3 (6.5-8.0) g/dL Albumin 4.2 (3.5-5.0) g/dL Lipase 20 (8-78) U/L Urine Color Yellow Urine Appearance Clear Urine pH 6.5 (5.0-9.0) Ur Specific [place] 1.020 (1.005-1.025) Urine Protein Negative (Neg-Trace) mg/dL Urine Glucose (UA) Negative (Negative) mg/dL Urine Ketones Negative (Negative) mg/dL Urine Blood Negative (Negative) Urine Nitrite Negative (Negative) Ur Leukocyte Esterase Negative (Negative) Urine RBC 0-2 (0-2) /HPF Urine WBC 0-5 (0-5) /HPF Ur Squamous Epith Cells 0-2 (0-2) /HPF Urine Bacteria None Seen (None Seen) Hyaline Casts 0-2 (0-2) /LPF Independent Interpretation I performed an independent interpretation of an: Ultrasound Radiology Impression Discussion of test interpretation with radiology: I have reviewed the radiologist's reading. Discharge Plan Discharge Clinical Impression: Groin strain Patient Disposition: Home, Self-Care Instructions: Groin Strain (ED) Additional Instructions: Take ibuprofen for pain No had hernia no hydrocele no testicular damage was seen Take ibuprofen for pain as needed Prescriptions: New ibuprofen 600 mg tablet 600 mg PO Q6H PRN (Reason: fever or pain) Qty: 30 0RF No Action ciprofloxacin HCl 500 mg tablet 500 mg PO BID 10 Days Qty: 20 0RF Interventions: ED Discharge Assessment Last Done: 12/19/23 23:02 Discharge Date/Time: 12/19/23 23:03 Print Language: Occitan
[2023-12-19 20:52] LABS: MANUAL DIFF FLAG NO
[2023-12-19 21:03] LABS: Appearance Urine Clear; Color Urine Yellow; Glucose Urine UA Negative (Negative); Leukocyte Esterase Urine Negative (Negative); Nitrite Urine Negative (Negative); PH 6.5 (5.0-9.0); Urine Blood Negative (Negative); Urine Ketones Negative (Negative); Urine Protein Negative (Neg-Trace)
[2023-12-19 21:04] LABS: Basophils Absolute Auto 0.1 X10*3/uL (0.0-0.2); Basophils Percent Auto 1.6 % (0-2); Eosinophils Absolute Auto 0.2 X10*3/uL (0.0-0.4); Hematocrit 44.2 % (42.0-52.0); Hemoglobin 15.7 g/dl (14.0-18.0); Imm Gran Abs Auto 0.01 X10*3/uL (0.00-0.03); Imm Gran Pct Auto 0.2 % (0.0-0.4); Lymphocytes Absolute Auto 2.2 X10*3/uL (1.2-4.9); Lymphocytes Percent Auto 39.5 % (20-40); Mean Corpuscular HGB Conc 35.5 g/dl (31.0-36.0); Mean Corpuscular Hemoglobin 31.3 pg (27.0-33.0); Mean Corpuscular Volume 88.2 fL (80.0-98.0); Mean Platelet Volume 9.1 fL (9.4-12.4); Monocytes Absolute Auto 0.4 X10*3/uL (0.1-1.2); Monocytes Percent Auto 6.8 % (2-11); Neutrophils Absolute Auto 2.7 x10*3/uL (2.0-8.3); Neutrophils Percent Auto 47.9 % (45-73); Platelet Count 271 X10*3/uL (160-400); Red Blood Count 5.01 X10*6/uL (4.60-5.80); Red Cell Distribution Width 11.7 % (11.0-16.0); White Blood Count 5.6 X10*3/uL (4.8-10.8)
[2023-12-19 21:07] LABS: Alanine Aminotransferase 14 U/L (0-40); Albumin Level 4.2 g/dL (3.5-5.0); Alkaline Phosphatase 73 U/L (39-117); Anion Gap 11 (12-20); Aspartate Amino Transferase 16 U/L (5-37); Bilirubin Total 0.4 mg/dL (0.0-1.0); Blood Urea Nitrogen 14 mg/dL (9-16); Calcium 9.5 mg/dL (8.4-10.2); Carbon Dioxide 28 mmol/L (22-29); Chloride 107 mmol/L (96-108); Creatinine Clr Calc Pharmacy 74.3; Estimated Glomerular Filt Rate > 60; Glucose Random 91 mg/dL (60-115); Lipase 20 U/L (8-78); Potassium 3.9 mmol/L (3.3-5.1); Sodium 142 mmol/L (135-145); Total Protein 7.3 g/dL (6.5-8.0)
[2023-12-19 21:29] LABS: Bacteria Urine None Seen (None Seen); Hyaline Casts Urine 0-2 /LPF (0-2); RBC Urine 0-2 /HPF (0-2); Squamous Epithelial Cell Urine 0-2 /HPF (0-2); WBC Urine 0-5 /HPF (0-5)
[2023-12-19] MEDS: Ibuprofen 600 MG TABLET PO (22:49)
[2023-12-19 23:02] VITALS: BP 142/85; PULSE 76; RESP 18; TEMP 36.5; O2SAT 97
== END 2023-12-19 23:03 | disposition home or self-care (01) ==
PROVIDERS: Physician Assistant; Emergency Provider Internal Medicine; PCP Internal Medicine
DX: S39.011A Strain of muscle, fascia and tendon of abdomen, initial encounter (principal); X50.0XXA Overexertion from strenuous movement or load, initial encounter; N50.811 Right testicular pain; Y93.9 Activity, unspecified; Y92.9 Unspecified place or not applicable; Y99.9 Unspecified external cause status
CPT/HCPCS: 36415; 76870; 80053; 81001; 83690; 85025; 93975; 99283; 99284

== ENCOUNTER 2024-04-03 12:02 | Outpatient (REF) | payer MEDICARE, MEDICAID, SELFPAY | END 2024-04-03 12:03 | disposition home or self-care (01) | LOC: HO.HAP 12:02 | PROVIDERS: Visit Provider Internal Medicine | DX: Z46.1 Encounter for fitting and adjustment of hearing aid (principal); H90.3 Sensorineural hearing loss, bilateral | CPT/HCPCS: V5266 ==

== ENCOUNTER 2024-06-06 12:13 | Outpatient (REF) | payer MEDICARE, MEDICAID, SELFPAY ==
[2024-06-06 12:36] LABS: MANUAL DIFF FLAG NO
[2024-06-06 13:07] LABS: Basophils Absolute Auto 0.1 X10*3/uL (0.0-0.2); Basophils Percent Auto 1.8 % (0-2); Eosinophils Absolute Auto 0.3 X10*3/uL (0.0-0.4); Eosinophils Percent Auto 5.5 % (0-4); Hematocrit 46.4 % (42.0-52.0); Imm Gran Abs Auto 0.01 X10*3/uL (0.00-0.03); Imm Gran Pct Auto 0.2 % (0.0-0.4); Lymphocytes Absolute Auto 1.6 X10*3/uL (1.2-4.9); Lymphocytes Percent Auto 33.5 % (20-40); Mean Corpuscular HGB Conc 34.5 g/dl (31.0-36.0); Mean Corpuscular Hemoglobin 29.6 pg (27.0-33.0); Mean Corpuscular Volume 85.8 fL (80.0-98.0); Mean Platelet Volume 9.1 fL (9.4-12.4); Monocytes Absolute Auto 0.4 X10*3/uL (0.1-1.2); Monocytes Percent Auto 7.8 % (2-11); Neutrophils Absolute Auto 2.5 x10*3/uL (2.0-8.3); Neutrophils Percent Auto 51.2 % (45-73); Platelet Count 267 X10*3/uL (160-400); Red Blood Count 5.41 X10*6/uL (4.60-5.80); Red Cell Distribution Width 12.1 % (11.0-16.0); White Blood Count 4.9 X10*3/uL (4.8-10.8)
[2024-06-06 13:51] LABS: Appearance Urine Clear; Color Urine Yellow; Glucose Urine UA Negative (Negative); Leukocyte Esterase Urine Negative (Negative); Nitrite Urine Negative (Negative); Urine Blood Negative (Negative); Urine Ketones Negative (Negative); Urine Protein Negative (Neg-Trace)
[2024-06-06 13:57] LABS: Prostate Specific Antigen 0.53 ng/mL (<0.05-4.0)
[2024-06-06 14:10] LABS: Alanine Aminotransferase 37 U/L (0-40); Albumin Level 4.1 g/dL (3.5-5.0); Alkaline Phosphatase 71 U/L (39-117); Anion Gap 9 (12-20); Aspartate Amino Transferase 26 U/L (5-37); Bilirubin Total 0.9 mg/dL (0.0-1.0); Blood Urea Nitrogen 20 mg/dL (9-16); Calcium 9.5 mg/dL (8.4-10.2); Carbon Dioxide 27 mmol/L (22-29); Chloride 106 mmol/L (96-108); Cholesterol 228 mg/dL (<200); Estimated Glomerular Filt Rate > 60; Glucose Fasting 86 mg/dL (60-99); HDL Cholesterol 61 mg/dL (>40); LDL Cholesterol Calculated 155 mg/dL (<100); Potassium 4.4 mmol/L (3.3-5.1); Sodium 138 mmol/L (135-145); Total Protein 7.7 g/dL (6.5-8.0); Triglycerides 62 mg/dL (<150)
[2024-06-06 14:11] LABS: TSH reflex Free T4 6.02 uIU/mL (0.32-4.0); Vitamin D 25-OH Total 31.8 ng/mL (>30)
[2024-06-06 14:43] LABS: Free T4 (Free Thyroxine) 0.81 ng/dL (0.71-1.85)
== END 2024-06-06 12:14 | disposition home or self-care (01) ==
LOC: HO.LAB 12:13
PROVIDERS: PCP Internal Medicine; Visit Provider Internal Medicine
DX: D64.9 Anemia, unspecified (principal); E78.00 Pure hypercholesterolemia, unspecified; E55.9 Vitamin D deficiency, unspecified; N40.0 Benign prostatic hyperplasia without lower urinary tract symptoms; R30.0 Dysuria; Z12.5 Encounter for screening for malignant neoplasm of prostate
CPT/HCPCS: 36415; 80053; 80061; 81003; 82306; 84153; 84439; 84443; 85025

== ENCOUNTER 2024-07-04 10:16 | Outpatient (AMB) | payer MEDICARE, MEDICAID, SELFPAY ==
[2024-07-04 10:17] VITALS: BP 110/70; PULSE 74; O2SAT 97; BMI 26.8
--- NOTE | 2024-07-04 10:17 | A.OFFPC_ITS ---
Vital Signs 07/04/24 10:17 Height 5 ft 7 in Weight 171 lb 4 oz BMI 26.8 BP 110/70 Blood Pressure Location Lt brachial Position Sitting Pulse 74 Pulse Source Pulse Oximeter Pulse Oximetry (%) 97 Oxygen Delivery Method Room Air Intake Visit Reasons: foot pain/ lab results Sql Server D[employer] Developer Required: No Accompanied by: Self / Same As Patient Allergies sulfamethoxazole [From Bactrim] Adverse Reaction (Intermediate, Verified 07/05/24 01:26) Hives trimethoprim [From Bactrim] Adverse Reaction (Intermediate, Verified 07/05/24 01:26) Hives Medication List - Last Reconciled 07/05/24 by Fernando Garza MD gabapentin 100 mg PO BEDTIME 30 days ibuprofen 600 mg PO Q6H PRN magnesium oxide (MagOx) 400 mg PO BID 30 days Tobacco use date assessed: 07/04/24 Dental Screening Dental Screen Date: 07/04/24 Did you have a dental visit in the last 12 months?: Yes Did you have a dental problem in the last 6 months where you did not have access to dental care?: No Was dental information given to patient?: Patient has dentist HPI foot pain/ lab results HPI Details Patient comes in today for his follow up visit - he has not been back since 12/30/2022 Patient states that he has been experiencing frequent/recurrent tingling sensation over the bottom of his feet lately Also notes (+) burning sensation over the soles of his feet at times, especially at night, as well as on and off cramping pains over the calf muscles on both lower extremities Would like to know if he needs to go for any tests to check these out further and if there are any medications he can take to relieve his symptoms States that he feels okay otherwise He denies any headaches or dizziness Denies any chest pains, no shortness of breath No nausea/vomiting, no abdominal pain No change in bowel habits noted He had some follow up labs done last month - to discuss his results [facility] Medical History (Updated 07/05/24 @ 04:05 by Fernando Garza MD) Pure hypercholesterolemia Congenital deafness H. pylori infection Normal colonoscopy Overweight (BMI 25.0-29.9) Anxiety GERD without esophagitis Hyperlipidemia Surgical History Hx of wisdom tooth extraction H/O colonoscopy Family History Maternal Grandfather Colon cancer Social History Housing: House Alcohol intake: current Alcohol intake frequency: holidays/special occasions only Patient Tobacco Use Status: Never used Tobacco Second Hand Smoke Exposure: Yes service: No Current occupational status: unemployed Cognitive needs: Yes Hearing needs: Yes Vision needs: No Questionnaire PHQ-9 Over the last 2 weeks, how often have you been bothered by any of the following problems? 1. Little interest or pleasure in doing things: not at all 2. Feeling down, depressed, or hopeless: not at all 3. Trouble falling or staying asleep, or sleeping too much: not at all 4. Feeling tired or having little energy: not at all 5. Poor appetite or overeating: not at all 6. Feeling bad about yourself - or that you are a failure or have let yourself or your family down: not at all 7. Trouble concentrating on things, such as reading the newspaper or watching television: not at all 8. Moving or speaking so slowly that other people could have noticed. Or the opposite - being so fidgety or restless that you have been moving around a lot more than usual: not at all 9. Thoughts that you would be better off or of hurting yourself in some way: not at all Total score: 0 Depression Screening Interpretation: Negative Depression Screening Done: Yes 21681 - PHQ-9 Billing: Yes Source: Developed by Drs. Antonio Shanks, Helena Olivas, Vasu Duarte and colleagues, with an educational sally from [employer]. Thrive Questionnaire Date Thrive assessed: 07/04/24 I am a: Patient What is your living situation today?: I have a steady place to live Within the past 12 months, did the food you bought not last and you didn't have the money to get more?: Never true Within the past 12 months, did you worry whether your food would run out before you got money to buy more?: Never true Do you have trouble paying for medicines?: No Do you have trouble getting transportation to medical appointments?: No Do you have trouble paying your heating and electricity bill?: No Do you have trouble taking care of your child, family member or friend?: No Do you have trouble with day-to-day activities such as bathing, preparing meals, shopping, managing finances, etc.?: No Are you currently unemployed and looking for a job?: No Are you interested in more education?: No Please select the resources that you would like help with: None Currently or been in a relationship where the following occur: No concerns reported THRIVE Score: 0 AUDIT C Alcohol Use Questionnaire (AUDIT-C) 1. How often do you have a drink containing alcohol?: Monthly or less 2. How many drinks containing alcohol do you have on a typical day when you are drinking?: 1 or 2 3. How often do you have six or more drinks on one occasion?: Never Total Score: 1 Score Reviewed/Action Taken: Yes SADAF-7 AMB Questionnaire SADAF-7 Date SADAF - 7 assessed: 07/04/24 Feeling nervous, anxious, or on edge: 0 = Not at all Not being able to stop or control worryin = Not at all Worrying too much about different things: 0 = Not at all Trouble relaxin = Not at all Being so restless that it is hard to sit still: 0 = Not at all Becoming easily annoyed or irritable: 0 = Not at all Feeling afraid as if something awful might happen: 0 = Not at all Total SADAF-7 score (0-4 normal; 5-9 mild; 10-14 moderate; 15-21 severe): 0 Source: Developed by Drs. Antonio Shanks, Helena Olivas, Vasu Duarte and colleagues, with an educational sally from [employer]. Review of Systems Const Denies chills, Denies fatigue, Denies fever(s) and Denies headache(s) ENT Denies dysphagia, Denies dizziness, Denies otalgia, Denies headache(s), Denies neck pain, Denies odynophagia and Denies sore throat Card Denies chest pain, Denies palpitations and Denies dyspnea Resp Denies chest congestion, Denies cough and Denies dyspnea GI Denies abdominal pain, Denies constipation, Denies dysphagia, Denies diarrhea, Denies nausea, Denies odynophagia and Denies vomiting Denies difficulty urinating, Denies dysuria, Denies nocturia and Denies urinary frequency Musc Reports muscle cramps (on and off in both legs), Denies neck pain, Reports numbness (on and off over the bottom of both feet) and Reports tingling (on and off over the bottom of both feet) Skin/Breast Denies rash Neuro Denies dizziness, Denies headache(s), Reports numbness (on and off over the bottom of both feet) and Reports tingling (on and off over the bottom of both feet) Endo Denies fatigue and Denies palpitations Physical exam (Primary Care) Vital Signs: Last Vital Signs Pulse 74 07/04/24 10:17 BP 110/70 07/04/24 10:17 Pulse Ox 97 07/04/24 10:17 Oxygen Delivery Method Room Air 07/04/24 10:17 BMI result Body Mass Index 26.8 Tobacco/Smoking Status: Tobacco use Status Tobacco use date assessed 07/04/24 07/04/24 10:20 Patient Tobacco Use Status Never used Tobacco 07/04/24 10:20 PHQ-9: PHQ-9 Score PHQ-9: Total score 0 07/04/24 10:47 Depression Screening Interpretation: Negative Thrive Assessment: Date of Thrive Assessment Date Thrive assessed 07/04/24 07/04/24 10:20 Currently or been in a relationship where the following occur: No concerns reported Const General: no acute distress and alert HENMT Ears: TM's normal bilaterally and EAC's normal Throat: Yes posterior oropharynx normal and Yes tonsils normal Neck Neck: Yes supple and No lymphadenopathy Thyroid: Thyroid normal Resp Auscultation: clear to auscultation bilaterally, no rales and no wheezes Cardio Rate: regular rate Rhythm: regular rhythm Heart sounds: no murmurs GI Palpation (GI): Soft to palpation and nontender Auscultation: normal bowel sounds General: Yes no CVA tenderness Back/Spine/Pelvis Back: no CVA tenderness Thoracic/Lumbar Spine: No lumbar spinal tenderness Skin Rashes: no rashes Extrem General: Yes no clubbing, cyanosis or edema Results Reviewed Results Reviewed: Laboratory Tests 06/06/24 06/06/24 12:33 12:34 WBC 4.9 Hgb 16.0 Hct 46.4 Plt Count 267 Sodium 138 Potassium 4.4 Creatinine 0.96 Estimated GFR > 60 Fasting Glucose 86 Calcium 9.5 AST 26 ALT 37 Triglycerides 62 Cholesterol 228 H LDL Cholesterol, Calc 155 H HDL Cholesterol 61 TSH 6.02 H Free T4 0.81 Urine Protein Negative Urine Glucose (UA) Negative Urine Blood Negative Urine Nitrite Negative Ur Leukocyte Esterase Negative Coding Level of Care Code Est Pt Level 4 (31642) Diagnoses Pure hypercholesterolemia E78.00 Congenital deafness H90.5 Irritable bowel syndrome with both constipation and diarrhea K58.2 GERD without esophagitis K21.9 Numbness and tingling of both feet R20.0; R20.2 Bilateral leg cramps R25.2 Chronic prostatitis N41.1 Anxiety F41.9 Overweight (BMI 25.0-29.9) E66.3 Additional Codes PHQ-9 - 58761 - PHQ-9 Billing: Yes ([id number]) Assessment & Plan Assessment & Plan (1) Pure hypercholesterolemia: Code(s): E78.00 - Pure hypercholesterolemia, unspecified Category: Medical Plan: Results of his labs done last month reviewed and discussed with patient - he is cautioned that his cholesterol levels were elevated and have increased from previous Reinforced low-cholesterol diet Will recheck his labs and fasting lipids in 4 months for follow-up (2) Congenital deafness: Comment: has speech impediment related to his deafness Code(s): H90.5 - Unspecified sensorineural hearing loss Category: Medical Plan: Patient currently has hearing aids in place (3) Irritable bowel syndrome with both constipation and diarrhea: Code(s): K58.2 - Mixed irritable bowel syndrome Category: Medical Plan: Patient states that his GI symptoms have calmed down a lot and have not bothered him lately He was taking Dicyclomine 20 mg QID and Senna 8.6 mg 2 tablets Q HS PRN before but has not had to take these Rx lately Follow up with GI as scheduled (4) GERD without esophagitis: Code(s): K21.9 - Gastro-esophageal reflux disease without esophagitis Category: Medical Plan: Dietary restrictions reinforced He used to take Omeprazole 20 mg QD and Famotidine 40 mg Q HS but also has not needed to take any Rx lately (5) Numbness and tingling of both feet: Code(s): R20.0 - Anesthesia of skin; R20.2 - Paresthesia of skin Category: Medical Plan: Have advised patient that his recent symptoms are suggestive of peripheral neuropathy He then became concerned that he may have diabetes Have reassured patient that based on his recent lab results, he does not have diabetes and have explained to him that neuropathy is not necessarily due to diabetes alone and can be due to other reasons Will include a few additional labs for further evaluation and all of these can just be done together with his other upcoming labs in a few montis Will go ahead and start him for now on Gabapentin 100 mg Q HS (6) Bilateral leg cramps: Code(s): R25.2 - Cramp and spasm Category: Medical Plan: Will start patient on a trial of Magnesium oxide 40 mg BID (7) Chronic prostatitis: Code(s): N41.1 - Chronic prostatitis Category: Medical Plan: He has been treated with Abx a couple of times in the past with improvement of his symptoms Follow up with urology as scheduled (8) Anxiety: Code(s): F41.9 - Anxiety disorder, unspecified Category: Medical (9) Overweight (BMI 25.0-29.9): Code(s): E66.3 - Overweight Category: Medical Plan: Reinforced diet/exercise as tolerated/lose weight Plan Follow up in 4 months Orders: Orders Complete Blood Count Auto Diff 4 Months D64.9 - Anemia, unspecified TSH reflex Free T4 4 Months E78.00 - Pure hypercholesterolemia, unspecified UA CC w/rflx Micro + Cult 4 Months R30.0 - Dysuria Magnesium 4 Months E83.42 - Hypomagnesemia Vitamin D 25-OH Total 4 Months E55.9 - Vitamin D deficiency, unspecified Erythrocyte Sedimentation Rate 4 Months R20.0 - Anesthesia of skin, R20.2 - Paresthesia of skin, R25.2 - Cramp and spasm Comprehensive [place]. Panel Fast 4 Months E78.00 - Pure hypercholesterolemia, unspecified Lipid Panel 4 Months E78.00 - Pure hypercholesterolemia, unspecified Vitamin B12 and Folate 4 Months E53.8 - Deficiency of other specified B group vitamins C Reactive Protein 4 Months R20.0 - Anesthesia of skin, R20.2 - Paresthesia of skin, R25.2 - Cramp and spasm Medications: New magnesium oxide (MagOx) 400 mg PO BID 30 days 60 tabs 5RF gabapentin 100 mg PO BEDTIME 30 days 30 caps 5RF
== END 2024-07-04 10:49 | disposition home or self-care (01) ==
LOC: HO.HMCH 10:16
PROVIDERS: PCP Internal Medicine; Visit Provider Internal Medicine
DX: E78.00 Pure hypercholesterolemia, unspecified (principal); H90.5 Unspecified sensorineural hearing loss; K58.2 Mixed irritable bowel syndrome; K21.9 Gastro-esophageal reflux disease without esophagitis; R20.0 Anesthesia of skin; R20.2 Paresthesia of skin; R25.2 Cramp and spasm; N41.1 Chronic prostatitis; F41.9 Anxiety disorder, unspecified; E66.3 Overweight

== ENCOUNTER → 2024-07-04 10:16 | Outpatient (BNVA) | payer MEDICARE, MEDICAID, SELFPAY | PROVIDERS: PCP Internal Medicine; Visit Provider Internal Medicine | DX: E78.00 Pure hypercholesterolemia, unspecified (principal); H90.5 Unspecified sensorineural hearing loss; K58.2 Mixed irritable bowel syndrome; K21.9 Gastro-esophageal reflux disease without esophagitis; R20.0 Anesthesia of skin; R20.2 Paresthesia of skin; R25.2 Cramp and spasm; N41.1 Chronic prostatitis; F41.9 Anxiety disorder, unspecified; E66.3 Overweight; Z68.26 Body mass index [BMI] 26.0-26.9, adult | CPT/HCPCS: 96127; 99212 ==

== ENCOUNTER 2024-08-27 13:10 | Outpatient (REF) | payer MEDICARE, MEDICAID, SELFPAY | END 2024-08-27 13:11 | disposition home or self-care (01) | LOC: HO.HAP 13:10 | PROVIDERS: Visit Provider Internal Medicine | DX: Z46.1 Encounter for fitting and adjustment of hearing aid (principal); H90.3 Sensorineural hearing loss, bilateral | CPT/HCPCS: V5266 ==

== ENCOUNTER 2024-09-27 08:33 | Outpatient (REF) | payer MEDICARE, MEDICAID, SELFPAY ==
[2024-09-27 08:46] LABS: MANUAL DIFF FLAG NO
[2024-09-27 09:23] LABS: Hematocrit 45.4 % (42.0-52.0); Hemoglobin 15.8 g/dl (14.0-18.0); Imm Gran Abs Auto 0.01 X10*3/uL (0.00-0.03); Imm Gran Pct Auto 0.2 % (0.0-0.4); Lymphocytes Absolute Auto 1.9 X10*3/uL (1.2-4.9); Mean Corpuscular HGB Conc 34.8 g/dl (31.0-36.0); Mean Corpuscular Hemoglobin 30.2 pg (27.0-33.0); Mean Corpuscular Volume 86.6 fL (80.0-98.0); NRBC Abs Auto 0.000 X10*3/uL (0.0-0.012); NRBC Pct Auto 0.0 /100WBC (0.0-0.2); Platelet Count 273 X10*3/uL (160-400); Red Blood Count 5.24 X10*6/uL (4.60-5.80); White Blood Count 4.7 X10*3/uL (4.8-10.8)
[2024-09-27 09:26] LABS: Appearance Urine Clear; Glucose Urine UA Negative (Negative); PH 6.5 (5.0-9.0); Specific Gravity - Urine 1.015 (1.005-1.025)
[2024-09-27 10:04] LABS: Alanine Aminotransferase 14 U/L (0-40); Albumin Level 4.3 g/dL (3.5-5.0); Alkaline Phosphatase 72 U/L (39-117); Anion Gap 11 (12-20); Aspartate Amino Transferase 21 U/L (5-37); Blood Urea Nitrogen 19 mg/dL (9-16); Calcium 9.7 mg/dL (8.4-10.2); Carbon Dioxide 26 mmol/L (22-29); Chloride 106 mmol/L (96-108); Cholesterol 202 mg/dL (<200); Estimated Glomerular Filt Rate > 60; HDL Cholesterol 57 mg/dL (>40); Magnesium 2.4 mg/dL (1.6-2.6); Potassium 4.3 mmol/L (3.3-5.1); Sodium 139 mmol/L (135-145); Total Protein 7.2 g/dL (6.5-8.0); Triglycerides 57 mg/dL (<150)
[2024-09-27 10:31] LABS: Folate 9.6 ng/mL (> or = 4.0); Vitamin B12 283 pg/mL (200-900)
[2024-09-27 10:59] LABS: Free T4 (Free Thyroxine) 0.81 ng/dL (0.71-1.85)
== END 2024-09-27 08:34 | disposition home or self-care (01) ==
LOC: HO.LAB 08:33
PROVIDERS: PCP Internal Medicine; Visit Provider Internal Medicine
DX: R20.0 Anesthesia of skin (principal); D64.9 Anemia, unspecified; E78.00 Pure hypercholesterolemia, unspecified; E53.8 Deficiency of other specified B group vitamins; R30.0 Dysuria; E55.9 Vitamin D deficiency, unspecified; R20.2 Paresthesia of skin; R25.2 Cramp and spasm
CPT/HCPCS: 36415; 80053; 80061; 81003; 82306; 82607; 82746; 83735; 84439; 84443; 85025; 85652; 86140

== ENCOUNTER 2024-10-02 16:44 | Outpatient (AMB) | payer MEDICARE, MEDICAID, SELFPAY ==
[2024-10-02 16:45] VITALS: BP 108/80; PULSE 80; O2SAT 97; BMI 25.2
--- NOTE | 2024-10-02 16:45 | A.OFFVIS_ITS ---
Intake Vital Signs 10/02/24 16:45 Height 5 ft 7 in Weight 161 lb 2 oz BMI 25.2 BP 108/80 Blood Pressure Location Lt brachial Position Sitting Pulse 80 Pulse Source Pulse Oximeter Pulse Oximetry (%) 97 Oxygen Delivery Method Room Air Intake Visit Reasons: AWV Research & Analytics Manager Required: No Accompanied by: Self / Same As Patient Allergies sulfamethoxazole (From Bactrim) Adverse Reaction (Intermediate, Verified 10/02/24 17:01) Hives trimethoprim (From Bactrim) Adverse Reaction (Intermediate, Verified 10/02/24 17:01) Hives Medication List - Last Reconciled 10/02/24 by Fernando Garza MD gabapentin 100 mg PO BEDTIME 30 days ibuprofen 600 mg PO Q6H PRN magnesium oxide (MagOx) 400 mg PO BID 30 days Do you need a note to return to daycare/school/sports/work: No HPI AWV HPI Details Patient comes in today for his Annual Medicare Wellness Exam and follow up visit States that he feels okay Admits that he did not start taking the Gabapentin Rx that we sent in for him as he was concerned about the possible side effects from the medication, especially with the possibility that the medication may make his depression worse Notes that the symptoms on his feet bother him only when he is wearing his shoes at work; states that the symptoms clear up mostly as soon as he takes off his shoes States that he feels okay otherwise He denies any headaches or dizziness Denies any chest pains, no SOB No nausea/vomiting, no abdominal pain No change in bowel habits noted He had his follow up labs done a few days ago - to discuss his results He had his screening colonoscopy last done in 02/2021 and was advised that his next screening colonoscopy will be due in 5 years (2025) ---- [place] of care was reviewed and updated today Patient does not have a healthcare proxy or MOLST form in place; he was provided with both forms and instructed to complete these as soon as possible IPPE/AWV: c/o of Annual Wellness Visit, initial visit. Medical / Social History Reviewed Past Medical History Yes . [place] of Care / Care Team list updated Yes . Surgical/Hospitalization History Yes . Current Medications (including OTC and supplements) Yes . Family History Yes . Tobacco Control form Yes . AUDIT-C (Alcohol use) form Yes . Illicit drug use in Social History Yes . Current diagnosis of depression? No Appropriate PHQ2/PHQ9 completed Yes . Data entered by Register Clerk and reviewed by provider Home Safety Throw rugs? No Grab bars? No Raised toilet seats? No Working smoke detectors? Yes Working carbon monoxide detectors? Yes Data entered by Register Clerk and reviewed by provider Activities of Daily Living (ADLs) Difficulty bathing or showering? No Difficulty dressing? No Difficulty using the toilet? No Difficulty getting in and out of bed? No Difficulty walking? No Receives help from another person with any of the above tasks? No Instrumental Activities of Daily Living (IADLs) Uses the telephone without help Gets to places out of walking distance without help Goes shopping for groceries without help Prepares own meals without help Does own minor home maintenance without help Does own laundry without help Does own housework without help Manages own money without help Currently takes medications? Yes Takes medication without help End-of-Life Planning Discussed advance directive Yes Advance directive not on file Discussed wishes expressed in advance directive agreed to following patient's wishes Fall Risk: Fall History Have you had any falls with injury in the past year? No . Have you had two or more falls in the past year? No . Fall Risk Assessment: No falls in the past year . HRA filled out by the patient, reviewed by Provider and scanned. [facility] Medical History (Updated 10/02/24 @ 19:12 by Fernando Garza MD) Acquired hypothyroidism Pure hypercholesterolemia Congenital deafness H. pylori infection Normal colonoscopy Overweight (BMI 25.0-29.9) Anxiety GERD without esophagitis Hyperlipidemia Surgical History Hx of wisdom tooth extraction H/O colonoscopy Family History Maternal Grandfather Colon cancer Social History Housing: House Alcohol intake: current Alcohol intake frequency: holidays/special occasions only Patient Tobacco Use Status: Never used Tobacco Second Hand Smoke Exposure: Yes service: No Current occupational status: unemployed Cognitive needs: Yes Hearing needs: Yes Vision needs: No Questionnaire Medicare Wellness Checkup What gender do you identify with?: male During the past 4 weeks, how much have you been bothered by emotional problems such as feeling anxious, depressed, irritable, sad or downhearted, and blue?: not at all During the past 4 weeks, has your physical & emotional health limited your social activities with family, friends, neighbors, or groups?: not at all During the past 4 weeks, how much bodily pain have you generally had?: no pain During the past 4 weeks, was someone available to help you if you needed & wanted help?: no, not at all During the past 4 weeks, what was the hardest physical activity you could do for at least 2 minutes?: heavy Can you get to places out of walking distance without help? (For eg., can you travel alone on buses, taxis or drive your car?): Yes Can you go shopping for groceries or clothes without someone's help?: Yes Can you prepare your own meals?: Yes Can you do your housework without help?: Yes Because of any health problems, do you need the help of another person with your personal care needs such as eating, bathing, dressing or getting around the house?: No Can you handle your own money without help?: Yes During the past 4 weeks, how would you rate your health in general?: excellent During the past 4 weeks how have things been going for you?: pretty well Are you having difficulties driving your car?: no Do you always fasten your seat belt when you are in a car?: yes, usually During past 4 weeks, have you been bothered by the following: never: Falling or dizzy when standing up, Sexual problems?, Trouble eating well?, Teeth or denture problems?, Problems using the telephone? and Tiredness or fatigue? Have you fallen 2 or more times in the past year?: No Are you afraid of falling?: No Are you a smoker?: no During the past 4 weeks, how many drinks of wine, beer, or other alcoholic mariela erages did you have?: 1 drink or less per week Do you exercise for about 20 minutes 3 or more times a week?: yes, most of the time Have you been given information to help with the following?: no: Hazards in your house that might hurt you? and no: Keeping track of your medications? How often do you have trouble taking medicines the way you have been told to take them?: sometimes I take medicine as prescribed How confident are you that you can control & manage most of your health problems?: somewhat confident What is your race?: White Mini Mental State Exam (MMSE) Orientation What is the (year) (season) (date) (day) (month)?: year, season, date, day and month Where are we (state) (county) (town or city) (hospital) (floor)?: state, county, town or city, hospital/clinic and floor Score Score: 10 Activity of Daily Living Bathing - sponge bath, tub bath or shower: receives no assistance (gets in/out by self, if usual bathing means Dressing - getting clothes from closets & drawers, including inner/outer garments & fasteners.: gets clothes & gets completely dressed without help Toileting - going to the 'toilet room' for urine/bowel elimination & cleaning self/arranging clothes: goes to toilet room, cleans self, arranges clothes without help Transfer: moves in & out of bed and chair without help (may use support object) Continence: controls urination/bowel movements completely by self Feeding: feeds self without help Total Score: 0 Information obtained from: patient Using telephone: independent Traveling: independent Shopping: independent Housework: independent Taking medicine: independent Managing money: independent PHQ-9 Over the last 2 weeks, how often have you been bothered by any of the following problems? 1. Little interest or pleasure in doing things: not at all 2. Feeling down, depressed, or hopeless: not at all 3. Trouble falling or staying asleep, or sleeping too much: not at all 4. Feeling tired or having little energy: not at all 5. Poor appetite or overeating: not at all 6. Feeling bad about yourself - or that you are a failure or have let yourself or your family down: not at all 7. Trouble concentrating on things, such as reading the newspaper or watching television: not at all 8. Moving or speaking so slowly that other people could have noticed. Or the opposite - being so fidgety or restless that you have been moving around a lot more than usual: not at all 9. Thoughts that you would be better off or of hurting yourself in some way: not at all Total score: 0 Depression Screening Interpretation: Negative Depression Screening Done: Yes 73400 - PHQ-9 Billing: Yes Source: Developed by Drs. Antonio Shanks, Helena Olivas, Vasu Duarte and colleagues, with an educational sally from [employer]. PHQ-2/PHQ-9 PHQ-2 Over the last 2 weeks, how often have you been bothered by any of the following problems? 1. Little interest or pleasure in doing things: not at all 2. Feeling down, depressed, or hopeless: not at all Total score: 0 If score is 3 or greater, continue 3. Trouble falling or staying asleep, or sleeping too much: not at all 4. Feeling tired or having little energy: not at all 5. Poor appetite or overeating: not at all 6. Feeling bad about yourself - or that you are a failure or have let yourself or your family down: not at all 7. Trouble concentrating on things, such as reading the newspaper or watching television: not at all 8. Moving or speaking so slowly that other people could have noticed. Or the opposite - being so fidgety or restless that you have been moving around a lot more than usual: not at all 9. Thoughts that you would be better off or of hurting yourself in some way: not at all Total score: 0 0-4 None-Minimal, 5-9 Mild, 10-14 Moderate, 15-19 Moderately Severe, 20-27 Severe Source: Developed by Drs. Antonio Shanks, Helena Olivas, Vasu Duarte and colleagues, with an educational sally from [employer]. Thrive Questionnaire Date Thrive assessed: 10/02/24 I am a: Patient What is your living situation today?: I have a steady place to live Within the past 12 months, did the food you bought not last and you didn't have the money to get more?: Never true Within the past 12 months, did you worry whether your food would run out before you got money to buy more?: Never true Do you have trouble paying for medicines?: No Do you have trouble getting transportation to medical appointments?: No Do you have trouble paying your heating and electricity bill?: No Do you have trouble taking care of your child, family member or friend?: No Do you have trouble with day-to-day activities such as bathing, preparing meals, shopping, managing finances, etc.?: No Are you currently unemployed and looking for a job?: No Are you interested in more education?: No Please select the resources that you would like help with: None Currently or been in a relationship where the following occur: No concerns reported THRIVE Score: 0 SADAF-7 AMB Questionnaire SADAF-7 Date SADAF - 7 assessed: 10/02/24 Feeling nervous, anxious, or on edge: 0 = Not at all Not being able to stop or control worryin = Not at all Worrying too much about different things: 0 = Not at all Trouble relaxin = Not at all Being so restless that it is hard to sit still: 0 = Not at all Becoming easily annoyed or irritable: 0 = Not at all Feeling afraid as if something awful might happen: 0 = Not at all Total SADAF-7 score (0-4 normal; 5-9 mild; 10-14 moderate; 15-21 severe): 0 Source: Developed by Drs. Antonio Shanks, Helena Olivas, Vasu Duarte and colleagues, with an educational sally from [employer]. Review of Systems Const Denies chills, Denies fatigue, Denies fever(s) and Denies headache(s) ENT Denies dysphagia, Denies dizziness, Denies otalgia, Denies headache(s), Denies neck pain, Denies odynophagia and Denies sore throat Card Denies chest pain, Denies palpitations and Denies dyspnea Resp Denies chest congestion, Denies cough and Denies dyspnea GI Denies abdominal pain, Denies constipation, Denies dysphagia, Denies diarrhea, Denies nausea, Denies odynophagia and Denies vomiting Denies difficulty urinating, Denies dysuria, Denies nocturia and Denies urinary frequency Musc Reports muscle cramps (on and off in both legs), Denies neck pain, Reports numbness (on and off over the bottom of both feet) and Reports tingling (on and off over the bottom of both feet) Skin/Breast Denies rash Neuro Denies dizziness, Denies headache(s), Reports numbness (on and off over the bottom of both feet) and Reports tingling (on and off over the bottom of both feet) Endo Denies fatigue and Denies palpitations Physical Exam Vital Signs: Last Vital Signs Pulse 80 10/02/24 16:45 BP 108/80 10/02/24 16:45 Pulse Ox 97 10/02/24 16:45 Oxygen Delivery Method Room Air 10/02/24 16:45 BMI result Body Mass Index 25.2 IPPE/AWV: Balance Romberg Yes . Tandem walk Yes . Walk and Turn Yes . Rise from sit to stand Yes . Vision Corrective lens No Vision screen pass Hearing Whisper test fail - patient has hearing aids Urinary incont. no. EKG Not clinically necessary. Const General: no acute distress and alert HEENT Ears: TM's normal bilaterally and EAC's normal Throat: Yes posterior oropharynx normal and Yes tonsils normal (no TP congestion noted) Neck Neck: Yes supple and No lymphadenopathy Thyroid: Thyroid normal Resp Auscultation: clear to auscultation bilaterally, no rales and no wheezes Cardio Rate: regular rate Rhythm: regular rhythm Heart sounds: no murmurs GI Palpation (GI): Soft to palpation and nontender Auscultation: normal bowel sounds General: Yes no CVA tenderness Back/Spine/Pelvis Back: no CVA tenderness Thoracic/Lumbar Spine: No lumbar spinal tenderness Skin Rashes: no rashes Extrem General: Yes no clubbing, cyanosis or edema Results Reviewed Results Reviewed: Laboratory Tests 09/27/24 09/27/24 08:45 08:50 WBC 4.7 L Hgb 15.8 Hct 45.4 Plt Count 273 ESR 2 Sodium 139 Potassium 4.3 Creatinine 1.01 Estimated GFR > 60 Fasting Glucose 89 Calcium 9.7 Magnesium 2.4 AST 21 ALT 14 Triglycerides 57 Cholesterol 202 H LDL Cholesterol, Calc 134 H HDL Cholesterol 57 Vitamin B12 283 25-OH Vitamin D Total 46.5 TSH 7.62 H Free T4 0.81 Ur Specific Mckenzie 1.015 Urine Protein Negative Urine Glucose (UA) Negative Urine Blood Negative Urine Nitrite Negative Ur Leukocyte Esterase Negative Assessment & Plan Assessment & Plan (1) Medicare annual wellness visit, initial: Code(s): Z00.00 - Encounter for general adult medical examination without abnormal findings Plan: HRA form discussed and completed with patient; form will be scanned into patient's chart NADER updated He is up-to-date with his cancer screening - had his colonoscopy done in 2020 and will be due for repeat colonoscopy in 2025 (5 years) (2) Pure hypercholesterolemia: Code(s): E78.00 - Pure hypercholesterolemia, unspecified Plan: Results of his labs done a few days ago reviewed and discussed with patient - his cholesterol levels have improved slightly from previous Reinforced low-cholesterol diet Will recheck his labs and fasting lipids in 3 months for follow-up (3) Acquired hypothyroidism: Code(s): E03.9 - Hypothyroidism, unspecified Plan: His recent labs showed findings consistent with hypothyroidism - his serum TSH has been slowly and consistently rising and his free T4 level remains borderline low Will go ahead and start him on Levothyroxine 25 mcg QD - patient is instructed on how to take this properly Will have him recheck his TFTs in 3 months for follow up (4) Congenital deafness: Comment: has speech impediment related to his deafness Code(s): H90.5 - Unspecified sensorineural hearing loss Plan: Patient currently has hearing aids in place (5) Irritable bowel syndrome with both constipation and diarrhea: Code(s): K58.2 - Mixed irritable bowel syndrome Plan: Patient states that his GI symptoms have calmed down a lot and have not been bothering him lately He was taking Dicyclomine 20 mg QID and Senna 8.6 mg 2 tablets Q HS PRN before but has not had to take these Rx in a while Follow up with GI as scheduled (6) GERD without esophagitis: Code(s): K21.9 - Gastro-esophageal reflux disease without esophagitis Plan: Dietary restrictions reinforced He used to take Omeprazole 20 mg QD and Famotidine 40 mg Q HS but also has not needed to take any Rx lately (7) Numbness and tingling of both feet: Code(s): R20.0 - Anesthesia of skin; R20.2 - Paresthesia of skin Plan: Have advised patient again that his symptoms are suggestive of peripheral neuropathy We tried starting him on Gabapentin 100 mg Q HS but he did not take the Rx as he was concerned about the possible side effects from the medication, especially with the possibility that the medication may make his depression worse Notes that the symptoms on his feet bother him only when he is wearing his shoes at work and that his symptoms clear up mostly as soon as he takes off his shoes As his Vitamin B12 level was also borderline low on his recent labs, will start him on Vitamin B12 1000 mcg QD (8) Bilateral leg cramps: Code(s): R25.2 - Cramp and spasm Plan: Continue Magnesium oxide 400 mg BID (9) Chronic prostatitis: Code(s): N41.1 - Chronic prostatitis Plan: He has been treated with Abx a couple of times in the past with improvement of his symptoms Follow up with urology as scheduled (10) Anxiety: Code(s): F41.9 - Anxiety disorder, unspecified Plan: States that he has been doing okay lately and does not need to take any Rx for anxiety at this time (11) Overweight (BMI 25.0-29.9): Code(s): E66.3 - Overweight Plan: Reinforced diet/exercise as tolerated/lose weight Plan Follow up in 3 months Orders: Orders Comprehensive [place]. Panel Fast 3 Months E78.00 - Pure hypercholesterolemia, unspecified Free T4 (Free Thyroxine) 3 Months E03.9 - Hypothyroidism, unspecified Thyroid Stimulating Hormone 3 Months E03.9 - Hypothyroidism, unspecified UA CC w/rflx Micro + Cult 3 Months R30.0 - Dysuria Complete Blood Count Auto Diff 3 Months D64.9 - Anemia, unspecified Lipid Panel 3 Months E78.00 - Pure hypercholesterolemia, unspecified Vitamin B12 and Folate 3 Months E53.8 - Deficiency of other specified B group vitamins Medications: New levothyroxine Take on an empty stomach, first thing in the morning, with water. Do not eat or drink anything else for 30 minutes afterwards 25 mcg PO DAILY 90 tabs 1RF 90 days E03.9 - Hypothyroidism, unspecified mecobalamin (vitamin B12) 1,000 mcg PO DAILY 90 tabs 3RF 90 days Discontinued gabapentin Discontinued Reason: Patient no longer taking 100 mg PO BEDTIME 30 days 30 caps 5RF Quality Reporting (2019) Depression/Bipolar (159/160/161/177) PHQ-9: Total score: 0 Coding Level of Care Code Medicare First (G0438) Est Pt Level 4 (37516) Diagnoses Medicare annual wellness visit, initial Z00.00 Pure hypercholesterolemia E78.00 Acquired hypothyroidism E03.9 Congenital deafness H90.5 Irritable bowel syndrome with both constipation and diarrhea K58.2 GERD without esophagitis K21.9 Numbness and tingling of both feet R20.0; R20.2 Bilateral leg cramps R25.2 Chronic prostatitis N41.1 Anxiety F41.9 Overweight (BMI 25.0-29.9) E66.3 Additional Codes PHQ-9 - 72202 - PHQ-9 Billing: Yes ([id number])
== END 2024-10-02 17:19 | disposition home or self-care (01) ==
LOC: HO.HMCH 16:44
PROVIDERS: PCP Internal Medicine; Visit Provider Internal Medicine
DX: Z00.00 Encounter for general adult medical examination without abnormal findings (principal); E78.00 Pure hypercholesterolemia, unspecified; E03.9 Hypothyroidism, unspecified; H90.5 Unspecified sensorineural hearing loss; K58.2 Mixed irritable bowel syndrome; K21.9 Gastro-esophageal reflux disease without esophagitis; R20.0 Anesthesia of skin; R20.2 Paresthesia of skin; R25.2 Cramp and spasm; N41.1 Chronic prostatitis; F41.9 Anxiety disorder, unspecified; E66.3 Overweight

== ENCOUNTER → 2024-10-02 16:44 | Outpatient (BNVA) | payer MEDICARE, MEDICAID, SELFPAY | PROVIDERS: PCP Internal Medicine; Visit Provider Internal Medicine | DX: Z00.00 Encounter for general adult medical examination without abnormal findings (principal); E78.00 Pure hypercholesterolemia, unspecified; E03.9 Hypothyroidism, unspecified; K58.2 Mixed irritable bowel syndrome; K21.9 Gastro-esophageal reflux disease without esophagitis; H90.5 Unspecified sensorineural hearing loss; R20.0 Anesthesia of skin; R20.2 Paresthesia of skin; R25.2 Cramp and spasm; N41.1 Chronic prostatitis; F41.9 Anxiety disorder, unspecified; E66.3 Overweight | CPT/HCPCS: 96127; 99212 ==

== ENCOUNTER 2025-02-12 11:38 | Outpatient (REF) | payer MEDICARE, MEDICAID, SELFPAY ==
--- OUTSIDE RECORDS SUMMARY | 2025-02-12 14:44 | XMS_ITS | Clinical Summary ---
Author Organization [facility] Address [address] [place] [id number] Phone Care Team Providers Care [place] Name Role Phone Fernando Garza MD Primary Care Provider [phone] Allergies Active Allergy Reactions Criticality Noted Date Comments Sulfamethoxazole-Trimethoprim Hives 2022 Medications omeprazole (PRILOSEC) 20 mg TbEC Take 20 mg by mouth daily before breakfast. Active SENNA 8.6 mg tablet TAKE 2 TABLETS BY MOUTH AT BEDTIME FOR CONSTIPATION 2 Active Active Problems No known active problems Immunizations Immunization Administration Dates Next Due INFLUENZA, SPLIT VIRUS, TRIVALENT PF 02/06/2017 Influenza Quadrivalent MDCK Preservative Free IM 02/20/2018 Influenza Quadrivalent Preservative Free IM 10/2015 Social History Tobacco Use Types Packs/Day Years Used Date Smoking Tobacco: Never Smokeless Tobacco: Never Tobacco Cessation:Counseling Given: Not Answered Education Answer Date Recorded Are you interested in more education? Not on josseline e 07/15/2022 Are you concerned about learning? Not on file 07/15/2022 No 07/15/2022 No 07/15/2022 Digital Access Answer Date Recorded No 08/16/2022 No 08/16/2022 Reliable internet access at home? Not on file 08/16/2022 Device with a working camera? Not on file Sex and Gender Information Value Date Recorded Sex Assigned at Not on file Legal Sex Male 12:19 PM EDT Gender Identity Not on file Sexual Orientation Not on file Last Filed Vital Signs Vital Sign Reading Time Taken Comments Blood Pressure 109/75 12/19/2023 7:03 PM EDT Pulse 67 12/19/2023 7:03 PM EDT Temperature 37 C (98.6 F) 12/19/2023 7:03 PM EDT Respiratory Rate 16 12/19/2023 7:03 PM EDT Oxygen Saturation 98% 12/19/2023 7:03 PM EDT Inhaled Oxygen Concentration - - Weight 74.8 kg (165 lb) 01/23/2021 3:36 PM EDT Height 170.2 cm (5' 7 ) 01/23/2021 3:36 PM EDT Body Mass Index 25.84 01/23/2021 3:36 PM EDT Plan of Treatment Health Maintenance Due Date Last Done Comments Adult Td,Tdap Booster 1968 LIPID PANEL 1968 DEPRESSION SCREENING 1980 HEPATITIS C SCREENING 02/17/1986 HIV ONE-TIME SCREENING (18-6 5 YEARS) 02/17/1986 COLOGUARD 02/17/2013 COLONOSCOPY 02/17/2013 COLORECTAL CANCER SCREENING 02/17/2013 FIT TEST 02/17/2013 FOBT 02/17/2013 SIGMOIDOSCOPY 02/17/2013 VIRTUAL COLONOSCOPY 02/17/2013 PNEUMOCOCCAL VACCINES (50+ years) (1 of 1 - PCV) 02/17/2018 INFLUENZA VACCINE (#1) 2024 8, 02/06/2017, 02/25/2016 COVID-19 VACCINE (1 - 2024-2 6 season) 2024 RSV VACCINE (1 - 1-dose 75+ series) 02/17/2043 ZOSTER VACCINES Completed 03/24/2023, 01/16/2023 SMOKING STATUS SCREENING (On ce After 26 Yrs) Completed 12/19/2023 HEPATITIS A VACCINES Aged Out No long er eligible based on patient's age to complete this topic HIB VACCINES Aged Out No longer eligi ble based on patient's age to complete this topic MENINGOCOCCAL VACCINES (ACWY) Aged Out No longer eligible based on patient's age to complete this topic MENINGOCOCCAL VACCINES (B) Aged Out N o longer eligible based on patient's age to complete this topic Medical Devices Not on file Insurance [facility] & [facility] & [place] [facility] MED[facility] PART A & B [facility] MED[facility] PART A & B Care Teams [place] Relationship Specialty Start Date End Date Fernando Garza MD [address] [place] [address] [place] [address] PCP - General Internal Medicine 01/23/21 Additional Source Comments The information contained in this document represents components of the legal health record. It is not the complete legal health record.[facility]
== END 2025-02-12 11:39 | disposition home or self-care (01) ==
LOC: HO.HAP 11:38
PROVIDERS: Visit Provider Internal Medicine
DX: H90.3 Sensorineural hearing loss, bilateral (principal)
CPT/HCPCS: V5266

== ENCOUNTER 2025-02-18 12:08 | Outpatient (REF) | payer MEDICARE, MEDICAID, SELFPAY ==
--- NOTE | 2025-02-18 13:38 | MHC.AU.HA3 ---
Hearing Instrument Follow-Up- Binaural Date of Visit: 02/18/25 Right Ear: Manuel, Model, Color, Serial Number: Matt LEON 1600 BTE 13P+ SN: [id number] Color: Silver Control Valve Technician Repair Warranty: 02/15/2025 Control Valve Technician Loss and Damage Warranty: 02/15/2025 [facility] Service Plan: 01/10/2023 Battery Size: 13 Earmold/Dome/CShell/SlimTip:Microsonic Canal Shell Dispensed By: [facility] Date of Fittin01/10/2022 Left Ear: Manuel, Model, Color, Serial Number: Matt LEON 1600 BTE 13P+ SN: [id number] Color: Silver Control Valve Technician Repair Warranty: 02/15/2025 Control Valve Technician Loss and Damage Warranty: 02/15/2025 [facility] Service Plan: 01/10/2023 Battery Size: 13 Earmold/Dome/CShell/SlimTip: Microsonic Canal Shell Dispensed By: [facility] Date of Fittin01/10/2022 Follow-Up Summary: Tubing hard, discolored, moisture build up. Tone hooks easily detach from YIP. Cleaned HAs (2). Cleaned EMs (2). Replaced tubing (2) 54603 x6. Replaced tone hooks. Cleaned/vacuumed microphones and microphone covers. Ran through dehumidifier. Listening check demonstrated HAs amplifying clearly. Recently purchased new cellphone - needed help pairing HAs to cell phone and [employer] brendan - Completed. Had to uninstall and reinstall [employer] brendan and create a new account. Cruzito requested his password for the [employer] brendan be stored in his chart. Password: [employer] Recommendations: Hearing instrument follow-up or maintenance as needed. Please contact our clinic with any questions or concerns. Diagnosis Code(s): Primary Diagnosis: H90.3 Bilateral Sensorineural Hearing Loss Signature: Provider: Crystal Blevins, [facility]
--- OUTSIDE RECORDS SUMMARY | 2025-02-18 14:11 | XMS_ITS | Clinical Summary ---
Author Organization [facility] Address [address] [place] [id number] Phone Care Team Providers Care Manager Workers Compensation Name Role Phone Fernando Garza MD Primary Care Provider [phone] Allergies Active Allergy Reactions Criticality Noted Date [...] topic Medical Devices Not on file Insurance [facility] & [facility] [place] [facility] & B Member Subscriber Plan / Payer (Ef fective 2021-) Name:Cruzito Gonzalez Jr. Member ID:[id number] Relation to Subscriber:Self Name:Sharon Gonzalezdarci Polanco Jr. Subscriber ID:[id number] Payer ID:[id number] Group ID:Not on file Type:Medicare Address: [facility] [employer] [facility] [address] [place] [address] [facility] PART A & B Care Teams Manager Workers Compensation Relationship Specialty Start Date End Date Fernando Garza MD [address] [place] [address] [place] [address] PCP - General Internal Medicine 01/23/21 Additional Source Comments The information contained in this document represents components of the legal health record. It is not the complete legal health record.[facility]
== END 2025-02-18 12:09 | disposition home or self-care (01) ==
LOC: HO.HAP 12:08
PROVIDERS: Visit Provider Internal Medicine
DX: H90.3 Sensorineural hearing loss, bilateral (principal)
CPT/HCPCS: 92593; 99499

== ENCOUNTER 2025-02-18 12:54 | Outpatient (REF) | payer SELFPAY | END 2025-02-18 12:55 | disposition home or self-care (01) | LOC: HO.HAP 12:54 | PROVIDERS: Visit Provider Internal Medicine | DX: Z46.1 Encounter for fitting and adjustment of hearing aid (principal) | CPT/HCPCS: V5267 ==